=== PATIENT | male | born 1950 | race Caucasian/White ===

== ENCOUNTER 2018-02-27 08:45 | Inpatient (IN) | payer BC, OTHER ==
[2018-01-21 08:22] VITALS: BMI 41.0
--- NOTE | 2018-02-11 12:05 | HISTORY & PHYSICAL EXAMINATION ---
DATE OF ADMISSION: 02/27/2018 CHIEF COMPLAINT: Left knee pain. HISTORY OF PRESENT ILLNESS: A 67-year-old gentleman who I have been following for several years for bilateral knee pain and discomfort. We have treated him extensively over the years with injections which have become less successful over time. He had his right knee replaced just about 2-1/2 months ago and has done well from this. He is very pleased with this and would like to have his left knee replaced. He continues to be bothered by left knee pain. The more he walks, the more it hurts. The shots only helped him temporarily. Of note, the patient does have a history of cryptogenic stroke without any real residual sequelae. He has been stable and cleared by the type caster to proceed before his previous surgery. PAST MEDICAL HISTORY: Significant for: 1. Cryptogenic stroke without much sequelae. 2. Obesity with BMI of 42. 3. Gastroesophageal reflux disease. 4. Low back pain. 5. Hypertension. 6. Elevated cholesterol. 7. Sleep apnea. PREVIOUS SURGERIES: Include: 1. Back surgery x2, one in 2007 and one in 2009. 2. Right knee replacement done 11/27/2017. ALLERGIES: None. CURRENT MEDICINES: Include: 1. Atorvastatin. 2. Lisinopril. 3. Meloxicam. 4. Baby aspirin. 5. Vicodin. SOCIAL HISTORY: This is a 67-year-old male. He is . His medical doctor is Dr. Aldrich. He is from [place]. FAMILY HISTORY: Negative for diabetes, heart disease or blood clots or bleeding disorders. REVIEW OF SYSTEMS: Negative for diabetes. He does have significant obesity. He has a history of cryptogenic stroke without sequelae. No chest pain or shortness of breath. No history of DVT or PE. PHYSICAL EXAMINATION: GENERAL: Reveals a moderately obese middle-aged male. Looks to be in reasonably good health. HEENT: Benign. NECK: Supple, no lymphadenopathy. LUNGS: Clear to auscultation. HEART: Regular rate and rhythm. ABDOMEN: Soft, nontender, nondistended. EXTREMITIES: Grossly neurovascularly intact except as follows: Examination of the left knee reveals the patient walks with a little bit of a limp on the left side. He has got slight valgus alignment to his knee. Small to moderate sized knee effusion. Range of motion is 5-120. No instability. No pain with hip motion. Examination of the right knee reveals a well-healed incision. Knee alignment looks anatomic. Range of motion is 0-120. Good straight leg raise. X-RAYS: X-rays of the left knee reveals advanced left knee DJD. He has got complete loss of his lateral joint space. He has got chondrocalcinosis. He has got tricompartment disease. ASSESSMENT: A 67-year-old male with history of cryptogenic stroke without sequelae. Now 2-1/2 months out from right knee replacement, doing well, with advanced left knee degenerative joint disease. He is very happy with his right knee and would like to have his left knee replaced. PLAN: We will take him to the operating room and do a left total knee replacement. The risks and benefits of this procedure were explained to the patient including but not limited to DVT, PE, , infection, neurological injury, vascular injury, bleeding problem, pain, limited range of motion, stiffness, failure to relieve symptoms, incomplete relief of symptoms, need for further surgery in the future, fracture, leg length inequality, nerve palsy, etc. The patient understands and desires to proceed. Informed consent was obtained. We did talk to him about holding his meloxicam 2 weeks preop as well as lisinopril prior to the morning of surgery. We will use aspirin for DVT prophylaxis. He is planning to be discharged to home using [facility] home health program. DAMON
[~2018-02-27] VITALS: Ht 170.2 cm; Wt 121.4 kg
[2018-02-27] VITALS (10 sets, daily range): BP systolic 107–166; BP diastolic 70–88; PULSE 70–96; TEMP 36.5–37.1; O2SAT 92–98; Ht 170.2 cm; Wt 121.4 kg
[~2018-02-27 08:45] MED LIST: ACETAMINOPHEN 500 MG TAB PO SCH; ASPI81TA28 PO; ATOR10TA82 PO; BUPIVACAINE 0.5 % 5 MG/1 ML PF 10ML VIAL ONE; BUPIVACAINE LIPOSOME 266 MG, BUPIVACAINE/EPINEPHRINE INJ 50 ML, SODIUM CHLORIDE 0.9% PF... INFIL SCH; CEFAZOLIN 3000MG IV PUSH 22.5 ML IV SCH; FAMOTIDINE 20 MG TAB PO SCH; GABAPENTIN 600 MG PO SCH; LACTATED RINGER'S 1000ML 1,000 ML IV SCH; LACTATED RINGER'S 1000ML 500 ML IV SCH; LACTATED RINGER'S 1000ML IV SCH; LISI-787 PO; MELO7.5T5 PO; METOCLOPRAMIDE HCL 10 MG TAB PO SCH; ROPIVACAINE 0.5% 5 MG/ML 30 ML VIAL ONE; SCOPOLAMINE 1.5 MG TDSY TD SCH; TRANEXAMIC ACID INJ 1,000 MG x 1 Bag Intra-Op IV SCH; [UNRECOGNIZED DRUG - OTHER] PO
--- NOTE | 2018-02-27 09:39 | History & Physical Bridge Note ---
H&P Re-Evaluation Bridge Note: I have examined the patient, reviewed the History & Physical and in the interval since the performance of the History & Physical I have noted the following changes of clinical significance: No changes noted
[2018-02-27] MEDS ORDERED: MIDAZOLAM HCL 1 MG/ML 2ML VIAL ONE (10:42)
[2018-02-27] MEDS ORDERED: BACITRACIN 50000 UNIT VIAL ONE (11:45)
[2018-02-27] MEDS ORDERED: BUPIVACAINE LIPOSOME 1/3% 266 MG/20 ML VIAL ONE (11:45)
[2018-02-27] MEDS ORDERED: SODIUM CHLORIDE 0.9% PF 50 ML VIAL ONE (11:45)
[2018-02-27] MEDS ORDERED: EpINEphrine INJ 1MG/ML AMP 1 MG/ML AMP ONE (11:46)
[2018-02-27] MEDS ORDERED: BUPIVACAINE 0.25% 30 ML VIAL ONE (11:46)
[2018-02-27] MEDS ORDERED: PHENYLEPHRINE 100MCG/ML 5ML SYR ONE (11:54)
[2018-02-27] MEDS ORDERED: EpHEDrine SULFATE 50MG/5ML SYR ONE (11:54)
[2018-02-27] MEDS ORDERED: ONDANSETRON INJ 2 MG/ML 2 ML VIAL ONE (12:49)
[2018-02-27] MEDS ORDERED: PROPOFOL IV EMULSION 10 MG/ML 20 ML VIAL ONE (12:49)
[2018-02-27] MEDS ORDERED: LIDOCAINE HCL 2% 2 ML VIAL (20MG/ML) ONE (12:49)
[2018-02-27] MEDS ORDERED: FENTANYL CITRATE INJ 50 MCG/1 ML 2 ML VIAL ONE (13:17)
--- NOTE | 2018-02-27 13:49 | [facility] Post Operative Brief Note ---
Immediate Operative Summary Operative Date Feb 27, 2018. Pre-Operative Diagnosis Degenerative joint disease left knee Post-Operative Diagnosis Degenerative Joint Disease Left knee Procedure(s) Performed Left Total Knee Arthroplasty Surgeon Waste Oil Pumper Surgeon(s) ASHLEY Soria Estimated Blood Loss 50 ml Findings Consistent with Post-Op Diagnosis Fluids (cc crystalloids) 1800 cc Specimens A. Left knee bone and tissue Drains None Anesthesia Type MAC Spinal Regional Complication(s) none Disposition Accompanied Pt To Recover: no Disposition: Recovery Room / PACU Overlapping Procedure I was present for: the critical portions of procedure. I was immediately available: during the entire case
[2018-02-27] MEDS ORDERED: MoRPHine SULFATE 2 MG/ML CARP IV PRN (14:00)
[2018-02-27] MEDS ORDERED: ALUMINUM/MAGNESIUM/SIMETH (MAALOX MAX) 30 ML UDC PO PRN (14:00)
[2018-02-27] MEDS ORDERED: BISACODYL 10 MG SUPP PR PRN (14:00)
[2018-02-27] MEDS ORDERED: DiphenhydrAMINE HCL 50 MG/ML VIAL IV PRN (14:00)
[2018-02-27] MEDS ORDERED: METOCLOPRAMIDE HCL INJ 5 MG/ML 2 ML VIAL IV PRN (14:00)
[2018-02-27] MEDS ORDERED: TAMSULOSIN HCL 0.4 MG CAP PO PRN (14:00)
[2018-02-27] MEDS ORDERED: SILVER SULFADIAZINE 1% CR 50 GM JAR EXT PRN (14:00)
[2018-02-27] MEDS ORDERED: MAGNESIUM HYDROXIDE SUSP 30 ML UDC PO PRN (14:00)
[2018-02-27] MEDS ORDERED: ZOLPIDEM TARTRATE 5 MG TAB PO PRN (14:00)
[2018-02-27] MEDS ORDERED: ONDANSETRON INJ 2 MG/ML 2 ML VIAL IV PRN ×2 (14:00→14:15)
[2018-02-27] MEDS ORDERED: EpHEDrine SULFATE INJ 50 MG/ML AMP ONE (14:12)
[2018-02-27] MEDS ORDERED: HYDROmorphone INJ 2 MG/ML SYR/VIAL IV PRN (14:15)
[2018-02-27] MEDS ORDERED: ATROPINE SULFATE 0.1 MG/ML 5ML SYR IV PRN (14:15)
[2018-02-27] MEDS ORDERED: PHENYLEPHRINE 100MCG/ML 5ML SYR IV PRN (14:15)
[2018-02-27] MEDS ORDERED: EpHEDrine SULFATE INJ 50 MG/ML AMP IV PRN (14:15)
--- NOTE | 2018-02-27 14:18 | Anesthesiology Progress Note ---
Anesthesia Post Op Note Date & Time Feb 27, 2018 at 14:18 Vital Signs Pain Intensity: 0 Vital Signs Past 12 Hours Date Time Temp Pulse Resp B/P (MAP) Pulse Ox O2 Delivery O2 Flow Rate FiO2 02/27/18 14:10 74 16 100/64 95 Nasal Cannula 2 02/27/18 14:00 76 16 110/60 95 Oxymask 10 02/27/18 13:54 36.6 75 16 104/52 96 Oxymask 10 02/27/18 09:11 36.5 96 20 166/88 97 Room Air Notes Mental Status: alert / awake / arousable, participated in evaluation Pt Amnestic to Procedure: Yes Nausea / Vomiting: adequately controlled Pain: adequately controlled Airway Patency, RR, SpO2: stable & adequate BP & HR: stable & adequate Hydration State: stable & adequate Anesthetic Complications: no major complications apparent
--- NOTE | 2018-02-27 14:41 | DIAGNOSTIC IMAGING REPORT ---
L KNEE 1 OR 2 VIEWS ROUTINE HISTORY: 67 years-old Male AP/LATERAL IN PACU LEFT KNEE left knee total joint arthroplasty. Degenerative joint disease. COMPARISON: Knee radiographs 07/11/2017 TECHNIQUE: 2 views of the left knee FINDINGS: Left knee total joint arthroplasty with patellar resurfacing. Anterior midline skin radha are noted with expected postsurgical soft tissue swelling and deep tissue air. Surgical drain is in place. Alignment is satisfactory without acute fracture or malalignment. Periarticular ossifications are noted adjacent to the medial femoral condyle. IMPRESSION: Left knee total joint arthroplasty and patellar resurfacing without complication identified. The above report was generated using voice recognition software. It may contain grammatical, syntax or spelling errors. Electronically signed by: Jose C Holbrook M.D. 02/27/2018 2:39 PM Dictated Date/Time: 02/27/2018 2:38 PM
--- NOTE | 2018-02-27 15:15 | OPERATIVE REPORT ---
DATE OF OPERATION: 02/27/2018 SURGEON: Sandro James MD NYLON MENDER: ASHLEY Sherman PREOPERATIVE DIAGNOSIS: Left knee degenerative joint disease. POSTOPERATIVE DIAGNOSIS: Left knee degenerative joint disease. PROCEDURE PERFORMED: Left cemented posterior stabilized total knee arthroplasty. COMPLICATIONS: None. ESTIMATED BLOOD LOSS: 50 mL. FLUID REPLACEMENT: 1800 mL crystalloid fluid replacement. TOURNIQUET TIME: 66 minutes at 300 mmHg. ANESTHESIA: Spinal with adductor canal block. DRAINS: None. SPECIMENS: Left knee sent for pathology. OPERATIVE INDICATIONS: The patient is a 67-year-old gentleman who has had a long history of bilateral knee pain and discomfort, not been following him over the years with injections. This became less successful over time. He has right knee replaced about 3 months ago and has done well from this and elected to do a left total knee arthroplasty. OPERATIVE FINDINGS: Operative findings revealed extensive left knee DJD with grade 4 changes in all 3 compartments, most severe in the lateral side. He had evidence of multiple steroid shots. He has extensive synovitis. He had osteophytes in all 3 compartments with large joint effusion. OPERATIVE IMPLANTS: Operative implants consisted of: 1. Biomet Vanguard size 67.5 left posterior stabilized bifemoral component. 2. Biomet size 75 tibial tray. 3. A 10 mm posterior stabilized polyethylene insert. 4. A 34 x 8.5 all poly patella. OPERATIVE PROCEDURE: The patient was taken to the operating room, identified and placed on the operative table in supine position. All contact areas were appropriately padded. IV antibiotics provided by anesthesia team. A spinal anesthetic and adductor canal block had been provided in the holding area. Butts catheter was placed in sterile fashion. Left thigh tourniquet was then placed and left lower extremity was then prepped and draped in usual sterile fashion. The left leg was elevated and exsanguinated with Esmarch and tourniquet placed at 300 mmHg. An anterior approach of the left knee was then performed through a longitudinal incision centered over the patella. Sharp dissection was carried through subcutaneous tissues down to the level of the extensor mechanism. A medial parapatellar arthrotomy incision was made. Some subperiosteal dissection was carried out medially. The fat pad resected from beneath the patellar tendon. The lateral patellofemoral ligament was released. Patella was everted and knee was flexed. The osteophytes were taken off the distal femur. The ACL and PCL were then released from the distal femur. The tibia subluxated anteriorly. The external tibial alignment jig was then placed in the anterior face of the tibia and adjusted 14 mm medially. Proximal tibial cut was made to remove about 2 mm of bone from the medial side. The tibia was then sized to a size 75. Some osteophytes were taken off medial and posteromedially. Attention was then drawn to the femur. The distal femur entered with a sharp drill bit. Intramedullary canal was suctioned. A left 6-degree valgus cutting guide was placed. Distal femoral cutting block was pinned in place. Distal femoral cut was made to take an additional 3 mm of bone on distal femur. The femur was then sized to a 67.5. We did downsize this slightly. The AP cutting block was pinned parallel to the epicondylar axis, which was 7 degrees of external rotation. The anterior cut, anterior chamfer, posterior cut, posterior chamfer cuts were made. Box cutting guide was placed and adjusted slightly lateral and the box cut was made. The trial femoral component was placed. Tibial tray was pinned in maximum external rotation and drill and stem punch were used to create defect in proximal tibia for the tibial tray. The knee was then trialed and a 10 mm insert fit most appropriately. Attention was then drawn to the patella. The patella was cleaned of soft tissues. Patella thickness measured 23 mm in thickness and we cut this down to 14. It was sized to a size 34 patella. Locals were drilled for a 34 patella. Lateral osteophyte was removed. Patella button was placed. Knee was taken through range of motion and patella tracked nicely with no thumbs test. Attention was then drawn toward placing the permanent components. All trial components were removed. Bone plug was placed in the distal femur to limit blood loss. A double batch of Palacos G cement was mixed. A left size 67.5 posterior stabilized femoral component, size 75 tibial tray, a 10 mm posterior stabilized polyethylene insert, and a 34 x 8.5 all poly patella then cemented in place. Knee was brought out into full extension until cement hardened. A final cement check was then performed. Pericapsular tissues were injected with a total of 100 mL of combination of 20 mL of Exparel, 30 mL of normal saline, 50 mL of 0.25% Marcaine with epinephrine. The patient did receive 1 gram of tranexamic acid. The tourniquet was then let down for final tourniquet time 66 minutes. Hemostasis was assured using electrocautery. The extensor mechanism was then closed combination of #1 PDS suture and #1 Vicryl suture in a [id number] fashion. Extensor mechanism was checked and found to be intact. The subcutaneous tissues were then closed with 2-0 Dexon suture in a buried interrupted fashion. Skin was closed skin radha. Leg was then cleaned, dried and a sterile dressing of Xeroform, 4 x 4's, sterile cast padding and Reddy bandage were applied. The patient then transferred to the recovery room in stable condition. The patient tolerated the procedure well with no complication. All needle and sponge counts were correct at the end of the operation. I attest to the content of the Intraoperative Record and any orders documented therein. Any exception s are noted below.
[2018-02-27] MEDS: OXYCODONE HCL IR 5 MG TAB (IMMEDIATE RELEASE) PO PRN ×2 (15:29→19:44)
[2018-02-27] MEDS: CHECK SCOPOLAMINE PATCH PLACEMENT SCH ×2 (15:35→20:06)
[2018-02-27] MEDS: ACETAMINOPHEN 500 MG TAB PO SCH ×2 (15:36→21:33)
[2018-02-27] MEDS: KETOROLAC TROMETHAMINE 15 MG/ML VIAL IV. SCH ×2 (15:36→21:33)
[2018-02-27] MEDS: FERROUS GLUCONATE 324 MG TAB PO SCH (17:41)
[2018-02-27] MEDS: CEFAZOLIN IV 2,000 MG in SYRINGE 0 ML IV SCH (19:56)
[2018-02-27] MEDS: D5W AND 1/2NSS + 20MEQ KCL 1,000 ML IV SCH ×2 (19:56→21:33)
[2018-02-27] MEDS: TAPENTADOL ER 50 MG TABCR PO SCH (21:31)
[2018-02-27] MEDS: ASPIRIN 81 MG ECTAB PO SCH (21:31)
[2018-02-27] MEDS: SENNA 8.6 MG TAB PO SCH (21:32)
[2018-02-27] MEDS: ATORVASTATIN 10 MG TAB PO SCH (21:32)
[2018-02-27] MEDS: DOCUSATE SODIUM 100 MG CAP PO SCH (21:32)
[2018-02-28 03:41] VITALS: BP 145/81; PULSE 80; TEMP 37; O2SAT 95
[2018-02-28] MEDS: OXYCODONE HCL IR 5 MG TAB (IMMEDIATE RELEASE) PO PRN ×3 (03:49→19:11)
[2018-02-28] MEDS: CEFAZOLIN IV 2,000 MG in SYRINGE 0 ML IV SCH (03:49)
[2018-02-28] MEDS: KETOROLAC TROMETHAMINE 15 MG/ML VIAL IV. SCH ×4 (03:49→22:10)
[2018-02-28] MEDS: D5W AND 1/2NSS + 20MEQ KCL 1,000 ML IV SCH ×2 (03:50→10:41)
[2018-02-28] MEDS: ACETAMINOPHEN 500 MG TAB PO SCH ×3 (05:51→22:05)
[2018-02-28 05:52] LABS: HEMATOCRIT 35.5 % (42-52); HEMOGLOBIN 11.8 g/dL (14.0-18.0); MEAN CELL VOLUME 90.1 fL (80-100); MEAN CORPUSCULAR HEMOGLOBIN 29.9 pg (25-34); MEAN CORPUSCULAR HGB CONC 33.2 g/dl (32-36); MEAN PLATELET VOLUME 9.9 fL (7.4-10.4); PLATELET COUNT 191 K/uL (130-400); RED CELL DISTRIBUTION WIDTH CV 12.6 % (11.5-14.5); RED CELL DISTRIBUTION WIDTH SD 41.9 fL (36.4-46.3); WHITE BLOOD COUNT 9.29 K/uL (4.8-10.8)
[2018-02-28 06:21] LABS: CALCIUM 7.6 mg/dl (8.5-10.1); CREATININE 1.22 mg/dl (0.60-1.40)
[2018-02-28 06:37] VITALS: BP 111/71; PULSE 74; TEMP 36.9; O2SAT 97
--- NOTE | 2018-02-28 07:20 | Anesthesiology Progress Note ---
Anesthesia Post Op Note Date & Time Feb 28, 2018 at 07:19 Vital Signs Pain Intensity: 4.0 Vital Signs Past 12 Hours Date Time Temp Pulse Resp B/P (MAP) Pulse Ox O2 Delivery O2 Flow Rate FiO2 02/28/18 06:37 36.9 74 16 111/71 (84) 97 Room Air 02/28/18 03:41 37.0 80 17 145/81 (102) 95 Room Air 02/27/18 23:53 36.7 80 16 125/73 (90) 98 Room Air 02/27/18 20:00 Room Air 02/27/18 19:24 37.1 79 18 136/76 (96) 92 Room Air Notes Mental Status: alert / awake / arousable, participated in evaluation Pt Amnestic to Procedure: Yes Nausea / Vomiting: adequately controlled Pain: adequately controlled Airway Patency, RR, SpO2: stable & adequate BP & HR: stable & adequate Hydration State: stable & adequate Neuraxial Anesthesia: sensory block resolved Anesthetic Complications: no major complications apparent Pt stated that he woke up hearing saws and hammers and he didnt like that. Otherwise uneventful anesthetic
--- NOTE | 2018-02-28 08:09 | PROGRESS NOTE ---
DATE: 02/28/2018 SUBJECTIVE: A 67-year-old gentleman postop day 1 from a left knee replacement. He is doing pretty well. Mostly just some thigh discomfort. No chest pain or shortness of breath. Not feeling dizzy or lightheaded. OBJECTIVE: VITAL SIGNS: Temperature 36.9. Vital signs stable. GENERAL: Physical examination reveals a healthy, pleasant, middle-aged male. He is sitting up in bed, looks reasonably comfortable. EXTREMITIES: Examination of the left leg reveals the leg to be well aligned. Dressing is clean, dry, and intact. He can dorsiflex and plantarflex his foot appropriately. LABORATORY DATA: Hemoglobin 11.8, hematocrit 35.5. Electrolytes are stable. ASSESSMENT: A 67-year-old gentleman postop day 1 from left knee replacement, doing pretty well. Pain is controlled. He is neurologically intact. PLAN: 1. DVT prophylaxis including thigh-high TEDs, SCDs, and aspirin twice a day. 2. PT/OT. Weight bear as tolerated. Left total knee protocol. 3. Pain control, doing pretty well with current pain regimen. 4. Disposition: Plan to discharge to home with some home health once adequately recovered.
[2018-02-28] MEDS: CHECK SCOPOLAMINE PATCH PLACEMENT SCH (08:13)
[2018-02-28] MEDS ORDERED: NURSING DECISION MEDICATION ORDER SCH (08:30)
[2018-02-28] MEDS: FERROUS GLUCONATE 324 MG TAB PO SCH ×3 (08:30→18:43)
[2018-02-28] MEDS: TAPENTADOL ER 50 MG TABCR PO SCH ×2 (08:39→22:05)
[2018-02-28] MEDS: LISINOPRIL/HCTZ 20/12.5MG TAB PO SCH (08:40)
[2018-02-28] MEDS: ASPIRIN 81 MG ECTAB PO SCH ×2 (08:40→22:06)
[2018-02-28] MEDS: PANTOprazole SOD 40 MG TAB PO SCH (08:41)
[2018-02-28] MEDS: DOCUSATE SODIUM 100 MG CAP PO SCH ×2 (08:42→22:06)
[2018-02-28] MEDS: MULTIVITAMIN TAB PO SCH (08:42)
[2018-02-28] MEDS ORDERED: COUGH DROP (SUGAR FREE) LOZ 24 LOZ/1 BOX LOZ PRN (08:45)
[2018-02-28 10:38] VITALS: BP 130/80; PULSE 83; O2SAT 98
[2018-02-28 11:24] VITALS: BP 124/76; PULSE 85; TEMP 36.9; O2SAT 95
[2018-02-28] MEDS ORDERED: NURSING VERBAL MED ORDER ONE (14:15)
[2018-02-28 15:56] VITALS: BP 120/75; PULSE 78; TEMP 36.9; O2SAT 93
[2018-02-28] MEDS: SENNA 8.6 MG TAB PO SCH (22:32)
[2018-02-28] MEDS: ATORVASTATIN 10 MG TAB PO SCH (22:32)
[2018-02-28 23:11] VITALS: BP 115/72; PULSE 95; TEMP 37.1; O2SAT 96
[2018-03-01] MEDS: KETOROLAC TROMETHAMINE 15 MG/ML VIAL IV. SCH ×2 (03:37→09:51)
[2018-03-01] MEDS: ACETAMINOPHEN 500 MG TAB PO SCH (05:54)
[2018-03-01 05:59] VITALS: BP 121/77; PULSE 77; TEMP 37; O2SAT 96
[2018-03-01] MEDS ORDERED: RXC5 PO (08:17)
[2018-03-01] MEDS ORDERED: ACET-24 PO (08:17)
[2018-03-01] MEDS ORDERED: ASPI-461 PO (08:17)
--- NOTE | 2018-03-01 08:18 | Discharge Instructions ---
Discharge Instructions Date of Service Mar 01, 2018. Admission Reason for Admission: Left Knee Degenerative Joint Disease Discharge Discharge Diagnosis / Problem: Left Knee Replacement Discharge Goals Goal(s): Decrease discomfort, Improve function, Increase independence, Improve disease control, Therapeutic intervention Activity Recommendations Activity Limitations: per Instructions/Follow-up section Weightbearing Status: Left weightbearing . Instructions / Follow-Up Instructions / Follow-Up ACTIVITY RECOMMENDATIONS: Physical Therapy: * You will go to physical therapy three times each week for four to six weeks after your surgery in order to regain your knee range of motion and to retrain your knee to work properly. * It is just as important to make sure you are getting your knee perfectly straight as it is to regain your knee bend. * Taking a pain pill an hour before therapy can help you have a more productive and comfortable therapy session. Home Exercise: * You were shown a series of exercises (heel props, heel slides, etc.) in the hospital. Do these exercises three to four times each day including the exercises you were shown in physical therapy. Walking: * Get up and walk several times each day. For the first four weeks, try not to stand or walk for more than one hour at a time. If you do stand or walk for more than one hour, you will not hurt anything, but your knee and leg will likely swell. * As you feel comfortable, you may change from the walker or crutches to a cane and then to independent walking. MEDICATIONS: New Medicine: * You will likely be taking one or more of these medications: 1. Oxycodone - A quick and shorter-acting pain medication. Take one to two tablets every four to six hours to lessen your pain. 2. Aspirin - Thins your blood to lessen the chance of forming a blood clot. * The most common side effects of pain medicine and iron are nausea and constipation. If nausea or constipation is too much of a problem or if you have any questions about your new medicines or doses, call [facility] at [phone]. We will try to help you manage these issues. VERY IMPORTANT TO READ AND REVIEW" Pain: * The immediate post-operative period after knee replacement surgery is often quite painful. * You are given a prescription for pain medicine. You should take it, as directed, when you need it, especially before physical therapy and before going to bed. Pain that interferes with sleep is very common and can last several months. * You will likely need pain medicine for the first four to six weeks. It will not stop all of the pain. The pain will lessen and as you feel better, you may change to milder pain medicine such as Tylenol. * The most common side effects of pain medicine are nausea and constipation, so don't take more than you need. SPECIAL CARE INSTRUCTIONS: TEDs/Elastic Stockings: * The white elastic stockings help limit swelling and prevent blood clots from forming in your legs. The more you wear them, the more they work. * Wear them for six weeks after knee replacement surgery and four weeks after partial knee replacement. Prevention of Infection: * Take antibiotics one hour before any dental cleaning, dental work, urological procedure, gastrointestinal procedure or any invasive surgery in order to prevent your new joint from getting infected. * You may get the antibiotics from the doctor performing the procedure or you may call our office at before and we will call in a prescription to the pharmacy of your choice. Things to Watch For: * Drainage from the incision site that occurs more than one week after your surgery. * Severely increased knee/leg pain or swelling. * Increased redness at the incision site. * Fever above 102 degrees Fahrenheit. * Unusual chest pain or shortness of breath. * Unusual pain or burning with urination. Call [facility] at with any of the above problems or if you have any questions about your medicines or recovery. FOLLOW UP VISIT: Make an appointment to see your doctor for approximately two weeks after surgery for a progress check and staple removal by calling the office at . Current Hospital Diet Patient's current hospital diet: Regular Diet Discharge Diet Recommended Diet: Regular Diet Procedures Procedures Performed: Left Total Knee Arthroplasty Pending Studies Studies pending at discharge: no Medical Emergencies . Who to Call and When: Medical Emergencies: If at any time you feel your situation is an emergency, please call [phone] immediately. . Non-Emergent Contact Non-Emergency issues call your: Surgeon . "Provider Documentation" section prepared by Sandro James. .
[2018-03-01] MEDS: TAPENTADOL ER 50 MG TABCR PO SCH (08:43)
[2018-03-01] MEDS: LISINOPRIL/HCTZ 20/12.5MG TAB PO SCH (08:44)
[2018-03-01] MEDS: MULTIVITAMIN TAB PO SCH (08:44)
[2018-03-01] MEDS: OXYCODONE HCL IR 5 MG TAB (IMMEDIATE RELEASE) PO PRN (08:44)
[2018-03-01] MEDS: PANTOprazole SOD 40 MG TAB PO SCH (08:44)
[2018-03-01] MEDS: FERROUS GLUCONATE 324 MG TAB PO SCH (08:44)
--- NOTE | 2018-03-01 08:53 | PROGRESS NOTE ---
DATE: 03/01/2018 SUBJECTIVE: A 67-year-old gentleman postop day 2 from a left knee replacement. He is doing pretty well. Pain is controlled. No chest pain or shortness of breath. Not feeling dizzy or lightheaded. OBJECTIVE: VITAL SIGNS: Temperature 37.0. Vital signs stable. GENERAL: Physical examination reveals a pleasant, middle-aged male. He is sitting up in bed, looks pretty comfortable. I actually had to wake him this morning. EXTREMITIES: Examination of the left leg reveals the leg to be well aligned. Dressing is clean, dry, and intact. He can dorsiflex and plantarflex his foot appropriately. He is neurologically intact. ASSESSMENT: A 67-year-old gentleman postop day 2 from a left knee replacement, doing pretty well. Pain is controlled. He is neurologically intact. PLAN: 1. DVT prophylaxis including thigh-high TEDs, SCDs, and aspirin twice a day. 2. PT, OT. Weight bear as tolerated. Left total knee protocol. 3. Pain control, doing well with current pain regimen. 4. Disposition: Plan to discharge to home with some home health likely later today.
[2018-03-01 09:40] VITALS: BP 121/77; PULSE 77; TEMP 37; O2SAT 96
[2018-03-01] MEDS: DOCUSATE SODIUM 100 MG CAP PO SCH (09:48)
[2018-03-01] MEDS: ASPIRIN 81 MG ECTAB PO SCH (09:48)
--- NOTE | 2018-03-11 15:59 | DISCHARGE SUMMARY ---
ADMITTING DIAGNOSIS: Left knee degenerative joint disease. SURGERY PERFORMED: Left total knee arthroplasty. SECONDARY DIAGNOSES: Cryptogenic stroke, obesity, gastroesophageal reflux disease, low back pain, hypertension, elevated cholesterol, sleep apnea. CONSULTS: None obtained. HISTORY AND PHYSICAL EXAMINATION: Well documented in the patient's chart. HOSPITAL COURSE: Patient was admitted on 02/27/2018 and underwent total knee arthroplasty, tolerated the procedure well. There were no complications. He was transferred to the PACU postoperatively and later to the orthopedic floor for further care. He was given Ancef for antibiotic prophylaxis, ISAI stockings, SCDs and aspirin for DVT prophylaxis. Hemoglobin, hematocrit, and vital signs were monitored during his hospital stay and remained stable. He developed some postoperative anemia, did not require any blood transfusions. There were no complications. On postoperative day 2, he was tolerating a regular diet. Pain was controlled with oral pain medicine. He was participating in physical therapy. On postop day 2, he was discharged home, set up with home health services. He was given printed discharge instructions including new prescriptions for extra strength Tylenol, aspirin, oxycodone. Continue his home medications with the exception of his home doses of aspirin and was also instructed to stop hydrocodone. Continue physical therapy. Weightbearing as tolerated. ISAI stockings. Follow up in approximately 2 weeks postoperatively or sooner if there are any problems or concerns.
== END 2018-03-01 10:34 | disposition home health service (06) | DRG 470 ==
LOC: C.ACU 08:45 → C.3E 08:52 → ENRESERV 14:23
PROVIDERS: ADMIT Orthopaedic Surgery Sports Medicine; ATTEND Orthopaedic Surgery Sports Medicine
PROC: 0SRD0J9 Replacement of Left Knee Joint with Synthetic Substitute, Cemented, Open Approach (ICD-10-PCS; principal; 2018-02-27 11:15)
DX: M17.12 Unilateral primary osteoarthritis, left knee (principal); Z68.41 Body mass index [BMI] 40.0-44.9, adult; Z86.73 Personal history of transient ischemic attack (TIA), and cerebral infarction without residual deficits; E66.9 Obesity, unspecified; K21.9 Gastro-esophageal reflux disease without esophagitis; I10 Essential (primary) hypertension; E78.00 Pure hypercholesterolemia, unspecified; G47.30 Sleep apnea, unspecified; Z96.651 Presence of right artificial knee joint; M11.162 Familial chondrocalcinosis, left knee

== ENCOUNTER 2022-02-13 12:48 | Observation (INO) ==
--- NOTE | 2022-02-13 13:28 | XRay Report ---
XR chest 1V portable CLINICAL HISTORY: afib TECHNIQUE: Single frontal radiograph of the chest was obtained. Comparison: None available at the time of this dictation. FINDINGS: Exam is limited by underpenetration. The cardiomediastinal silhouette is normal. Lungs are underinfla linda but clear. No evidence of pleural effusion or pneumothorax. IMPRESSION: No acute chest disease. ACT 112: Negative or not required by law. Electronically signed by: Mitch Hoang M.D. 02/13/2022 1:27 PM
--- NOTE | 2022-02-13 13:31 | Emergency Department Note ---
Impression & Plan Atrial fibrillation, new onset, Hypomagnesemia ED Provider Note NAME: SAAD MCLAUGHLIN AGE: 71 SEX: M : 1950 ARRIVES VIA: Walk-In INFORMANT: Patient, ED PROVIDER(S): Elvis Grijalva MD Chief Complaint: HPI: Patient presents as a referral from outpatient surgery for preoperative clearance for a right shoulder replacement to be completed by Dr. Black in March. The patient was reportedly found to be in A. fib. 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 Patient does have a prior history of stroke and does take aspirin. Patient [place] any chest pain shortness of breath nausea or vomiting. No weakness numbness or tingling. The patient denies any palpitations or dizziness. Patient drinks maybe several beers per week but not regular drinker. Patient denies any tobacco or drug use. Patient will have occasional caffeine but certainly no more than 1/day. ROS: See HPI for pertinent positives and negatives. A total of 10 systems were reviewed and otherwise negative. Past medical history: See below Surgical history: See below Social history: See below Physical Exam: GENERAL: NAD, wearing a mask, non-toxic. EYE EXAM: Normal conjunctiva. PERRL, no anisocoria and EOM's grossly intact w/o pain. NECK: Supple, no nuchal rigidity, no adenopathy, non-tender. No signs of meningismus. LUNGS: Clear to auscultation. Normal chest wall mechanics. HEART: Irregularly irregular, no MRG. ABDOMEN: Abdomen soft, non-tender, normo-active bowel sounds, no masses, no rebound or guarding. BACK: No CVA TTP. SKIN: No rashes and no bruising. UPPER EXTREMITIES: Upper extremities are grossly normal. LOWER EXTREMITIES: Grossly normal, no edema. Well-healed bilateral incisional knee scars. NEURO EXAM: A&O x3, cranial nerves II-XII grossly intact, normal speech, moves all 4 extremities on command w/o issue. Differential diagnoses: Infection, dehydration, metabolic abnormality, hypo/hyperglycemia, electrolyte disturbance, anemia, hypoxia, cardiac sources, intracerebral event, toxicologic, neurologic, as well as other pathologies. Course: Patient was seen and evaluated the bedside. Full history physical exam was performed. EKG interpreted by me Jade coreas, rate of 83, normal QRS, normal axis, T wave version in lead III no obvious ST elevations. Imaging Studies: See Below Cardiac monitoring: An order was placed for continuous cardiac monitoring. The monitor shows a rate of 82 with irregularly irregular rhythm. MDM: Patient was seen due to concern for new onset A. fib. Blood work was obtained. EKG confirms A. fib. The patient has a normal white count H&H and platelet count. Kidney function is unremarkable. Hypomagnesemia noted the patient was ordered for magnesium replacement. COVID-negative. Heparin was ordered. I did speak with the on-call hospitalist Dr. Anand and the patient was admitted to the medicine service. No chest pain or shortness of breath at this time. Critical Care: I have personally spent 45 minutes of critical care time in direct management of this patient. This includes bedside care, interpretation of diagnostic studies, and testing, discussion with consultants, patient, and family members, and other require inpatient management activities. This 45 minutes is in excess of all separately billable procedures. 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 L 02/27/18: SAB at L3-L4, L2-L3 2 attempts + PNB. Awareness with L TKA "heard saws and hammers." History of cholecystectomy History of colonoscopy History of ear surgery History of spinal fusion for scoliosis x2--2007 and 2009 Family History Sister Family history of reaction to anesthesia BP drops Social History Smoking Status: Former smoker Tobacco Type: Cigarettes Second Hand Exposure: No; Hx Alcohol Use: Yes Hx Substance Use: No Preferred Language: Lithuanian Communication Ability: Effective Systems Librarian Required: No Beliefs That Will Affect Care: None Current Living Situation: Spouse Feels Safe at Home: Yes Assistive Devices: Glasses Allergies Allergies Allergy/AdvReac Type Severity Reaction Status Date / Time No Known Allergies Allergy Unknown Verified 02/09/22 11:36 Home Meds Home Medications Medication Instructions Recorded Confirmed acetaminophen 500 mg tablet 1,000 mg PO Q6H PRN 02/09/22 02/09/22 aspirin 81 mg chewable tablet 81 mg PO QAM 02/09/22 02/09/22 atorvastatin 10 mg tablet 10 mg PO HS 02/09/22 02/09/22 hydrocodone 7.5 mg-acetaminophen 1 tab PO Q6H PRN 02/09/22 02/09/22 325 mg tablet lisinopril 20 2 tab PO QAM 02/09/22 02/09/22 mg-hydrochlorothiazide 12.5 mg tablet meloxicam 7.5 mg tablet 7.5 mg PO QAM 02/09/22 02/09/22 cholecalciferol (vitamin D3) 02/13/22 metformin 02/13/22 Results & Data (ED) Vital Signs Vital Signs - 24 hr 02/13/22 12:53 02/13/22 13:50 02/13/22 13:51 Temperature 36.7 C Temperature Source Temporal Artery Scan Pulse Rate 91 H 78 Pulse Rate [Apical] 87 Respiratory Rate 20 20 22 Respiratory Effort / Characteristics Non-Labored Non-Labored Spontaneous Respiratory Depth Normal Normal Respiratory Pattern Regular Regular Blood Pressure 140/98 Blood Pressure [Right Arm] 147/105 H Blood Pressure Mean 112 Blood Pressure Mean [Right Arm] 119 Blood Pressure Position Sitting Pulse Oximetry 96 98 97 Oxygen Delivery Method Room Air Room Air Room Air Sepsis Recent Fever Within 48 Hours No Sepsis New/Unexplained Change in Mental Status N/A Sepsis Action Taken by Nursing No Action Required 02/13/22 14:30 02/13/22 15:00 Temperature Temperature Source Pulse Rate 84 Pulse Rate [Apical] 86 Respiratory Rate 20 16 Respiratory Effort / Characteristics Non-Labored Respiratory Depth Normal Respiratory Pattern Blood Pressure 156/95 H Blood Pressure [Right Arm] 138/84 Blood Pressure Mean 115 Blood Pressure Mean [Right Arm] 102 Blood Pressure Position Pulse Oximetry 98 97 Oxygen Delivery Method Room Air Room Air Sepsis Recent Fever Within 48 Hours Sepsis New/Unexplained Change in Mental Status Sepsis Action Taken by [facility] Medications Current Medication List: was personally reviewed by me Laboratory Data Attestation: I reviewed the patient's lab results. Result diagrams: 02/13/22 14:14 02/13/22 14:14 Lab Results 02/13/22 02/13/22 02/13/22 Range/Units 13:50 14:14 14:14 WBC (4.8-10.8) K/ul RBC (4.63-6.08) M/uL Hgb (14.0-18.0) g/dl Hct (40.1-51.0) % MCV (80.0-100.0) fL MCH (25.0-34.0) pg MCHC (32.0-36.0) g/dL RDW Std Deviation (36.4-46.3) fL RDW Coeff of Alan (11.5-14.5) % Plt Count (130-400) K/uL MPV (9.4-12.4) fL Immature Gran % (Auto) % Neut % (Auto) % Lymph % (Auto) % Boyle % (Auto) % Eos % (Auto) % Baso % (Auto) % Neut # (Auto) (1.4-6.5) K/uL Lymph # (Auto) (1.2-3.4) K/uL Boyle # (Auto) (0.24-0.82) K/uL Eos # (Auto) (0-0.50) K/uL Baso # (Auto) (0-0.2) K/uL Immature Gran # (Auto) (0.00-0.02) K/uL PT (9.0-12.0) Seconds INR (0.9-1.1) Sodium 137 (136-145) mmol/L Potassium 4.1 (3.5-5.1) mmol/L Chloride 104 (98-107) mmol/L Carbon Dioxide 27 (21-32) mmol/L Anion Gap 6 (3-11) BUN 18 (6-23) mg/dl Creatinine 1.10 (0.6-1.4) mg/dl Est Cr Clr Drug Dosing Not Reportable Est GFR ( Amer) 79.0 ml/min Est GFR (Non-Af Amer) 68.1 ml/min BUN/Creatinine Ratio 16.4 (10-20) Glucose 101 H (70-99(Fasting)) mg/dl Calcium 9.3 (8.5-10.1) mg/dl Magnesium 1.6 L (1.7-2.4) mg/dl Total Bilirubin 1.1 H (0.2-1.0) mg/dl AST 15 (13-39) U/L ALT 18 (7-52) U/L Alkaline Phosphatase 48 (34-104) U/L Troponin I High Sens 6.0 (0-20) pg/ml Total Protein 6.7 (6.0-8.3) gm/dl Albumin 4.2 (3.4-5.0) gm/dl Globulin 2.5 (2.5-4.0) gm/dl Albumin/Globulin Ratio 1.7 (0.9-2) TSH 1.140 (0.300-4.500) uIu/ml SARS-CoV-2, RNA, NAAT NEGATIVE (NEGATIVE) 02/13/22 02/13/22 Range/Units 14:14 14:14 WBC 9.11 (4.8-10.8) K/ul RBC 4.69 (4.63-6.08) M/uL Hgb 14.7 (14.0-18.0) g/dl Hct 42.8 (40.1-51.0) % MCV 91.3 (80.0-100.0) fL MCH 31.3 (25.0-34.0) pg MCHC 34.3 (32.0-36.0) g/dL RDW Std Deviation 41.9 (36.4-46.3) fL RDW Coeff of Alan 12.8 (11.5-14.5) % Plt Count 202 (130-400) K/uL MPV 10.2 (9.4-12.4) fL Immature Gran % (Auto) 1.2 % Neut % (Auto) 67.9 % Lymph % (Auto) 22.3 % Boyle % (Auto) 6.6 % Eos % (Auto) 1.3 % Baso % (Auto) 0.7 % Neut # (Auto) 6.19 (1.4-6.5) K/uL Lymph # (Auto) 2.03 (1.2-3.4) K/uL Boyle # (Auto) 0.60 (0.24-0.82) K/uL Eos # (Auto) 0.12 (0-0.50) K/uL Baso # (Auto) 0.06 (0-0.2) K/uL Immature Gran # (Auto) 0.11 H (0.00-0.02) K/uL PT 12.3 H (9.0-12.0) Seconds INR 1.2 H (0.9-1.1) Sodium (136-145) mmol/L Potassium (3.5-5.1) mmol/L Chloride (98-107) mmol/L Carbon Dioxide (21-32) mmol/L Anion Gap (3-11) BUN (6-23) mg/dl Creatinine (0.6-1.4) mg/dl Est Cr Clr Drug Dosing Est GFR ( Amer) ml/min Est GFR (Non-Af Amer) ml/min BUN/Creatinine Ratio (10-20) Glucose (70-99(Fasting)) mg/dl Calcium (8.5-10.1) mg/dl Magnesium (1.7-2.4) mg/dl Total Bilirubin (0.2-1.0) mg/dl AST (13-39) U/L ALT (7-52) U/L Alkaline Phosphatase (34-104) U/L Troponin I High Sens (0-20) pg/ml Total Protein (6.0-8.3) gm/dl Albumin (3.4-5.0) gm/dl Globulin (2.5-4.0) gm/dl Albumin/Globulin Ratio (0.9-2) TSH (0.300-4.500) uIu/ml SARS-CoV-2, RNA, NAAT (NEGATIVE) Administered Medications Heparin Sodium/Dextrose (Heparin Sodium/Dextrose) 25,000 units in 500 mls @ 33 mls/hr IV .[id number] [facility]; Protocol Stop: 03/15/22 15:44 Last Admin: 02/13/22 16:42 Dose: 1,650 units/hr, 33 mls/hr Documented by: [id number] Cosigned by: [id number] Discontinued Medications Magnesium Sulfate/Dextrose (Magnesium Sulfate / D5w) 1 gm in 100 mls @ 100 mls/hr IV NOW STA Stop: 02/13/22 16:49 Last Admin: 02/13/22 16:42 Dose: 100 mls/hr Documented by: [id number] Imaging Data Radiologist's Impression: Chest X-Ray 02/13/22 13:05 XR chest 1V portable CLINICAL HISTORY: afib TECHNIQUE: Single frontal radiograph of the chest was obtained. Comparison: None available at the time of this dictation. FINDINGS: Exam is limited by underpenetration. The cardiomediastinal silhouette is normal. Lungs are underinflated but clear. No evidence of pleural effusion or pneumothorax. IMPRESSION: No acute chest disease. ACT 112: Negative or not required by law. Electronically signed by: Mitch Hoang M.D. 02/13/2022 1:27 PM Discharge Plan Visit Data Chief Complaint: Illness Stated Complaint: ABNORMAL EKG ED Provider: Elvis Grijalva Discharge Problem: Atrial fibrillation, new onset, Hypomagnesemia Patient Disposition: Admitted As Inpatient Forms [facility] Pres[facility] Prescriptions: No Action atorvastatin 10 mg Tablet 10 mg PO HS RF: 0 lisinopril-hydrochlorothiazide 20-12.5 mg Tablet 2 tab PO QAM RF: 0 acetaminophen 500 mg Tablet 1,000 mg PO Q6H PRN (Reason: Pain) RF: 0 meloxicam 7.5 mg Tablet 7.5 mg PO QAM RF: 0 hydrocodone-acetaminophen 7.5-325 mg Tablet 1 tab PO Q6H PRN (Reason: Pain) RF: 0 aspirin [Aspirin Child] 81 mg Tablet,Chewable 81 mg PO QAM RF: 0 metformin RF: 0 cholecalciferol (vitamin D3) RF: 0 Referrals Referrals: Raysa Aldrich M.D. [Primary Care Provider] -
[2022-02-13 14:37] LABS: Basophils # (auto) 0.06 K/uL (0-0.2); Basophils % (auto) 0.7 %; Eosinophils # (auto) 0.12 K/uL (0-0.50); Eosinophils % (auto) 1.3 %; Hematocrit (blood only) 42.8 % (40.1-51.0); Hemoglobin 14.7 g/dl (14.0-18.0); Immature Granulocytes # (auto) 0.11 K/uL (0.00-0.02); Immature Granulocytes % (auto) 1.2 %; Lymphocytes # (auto) 2.03 K/uL (1.2-3.4); Lymphocytes % (auto) 22.3 %; Mean Corpuscular Hemoglobin 31.3 pg (25.0-34.0); Mean Corpuscular Hgb Conc 34.3 g/dL (32.0-36.0); Mean Corpuscular Volume 91.3 fL (80.0-100.0); Mean Platelet Volume 10.2 fL (9.4-12.4); Monocytes % (auto) 6.6 %; Neutrophils # (auto) 6.19 K/uL (1.4-6.5); Neutrophils % (auto) 67.9 %; Platelet Count 202 K/uL (130-400); RDW Coefficient of Variation 12.8 % (11.5-14.5); RDW Standard Deviation 41.9 fL (36.4-46.3); Red Blood Count 4.69 M/uL (4.63-6.08); White Blood Count 9.11 K/ul (4.8-10.8)
[2022-02-13 14:47] LABS: INR 1.2 (0.9-1.1); Prothrombin Time 12.3 Seconds (9.0-12.0)
[2022-02-13 15:05] LABS: Alanine Aminotransferase 18 U/L (7-52); Albumin Globulin Ratio 1.7 (0.9-2); Albumin Level 4.2 gm/dl (3.4-5.0); Alkaline Phosphatase 48 U/L (34-104); Anion Gap 6 (3-11); Aspartate Aminotransferase 15 U/L (13-39); BUN Creatinine Ratio 16.4 (10-20); Bilirubin,Total 1.1 mg/dl (0.2-1.0); Blood Urea Nitrogen 18 mg/dl (6-23); Calcium 9.3 mg/dl (8.5-10.1); Carbon Dioxide 27 mmol/L (21-32); Chloride 104 mmol/L (98-107); Est GFR (Non-African American) 68.1 ml/min; Globulin 2.5 gm/dl (2.5-4.0); Glucose 101 mg/dl (70-99(Fasting)); Magnesium 1.6 mg/dl (1.7-2.4); Potassium 4.1 mmol/L (3.5-5.1); Sodium 137 mmol/L (136-145); Total Protein 6.7 gm/dl (6.0-8.3)
[2022-02-13] MEDS ORDERED: Heparin IV Adult Wt-Based Standard *NO* Bolus Protocol IV ONE (15:17)
[2022-02-13] MEDS ORDERED: MAGNESIUM SULFATE / D5W 1 GM/100 ML BAG IV STA (15:50)
[2022-02-13] MEDS: HEPARIN SODIUM/DEXTROSE 25,000 UNITS/500 ML BAG IV SCH (16:42)
--- NOTE | 2022-02-13 16:44 | History & Physical Report ---
Date of Service February 13, 2022 Assessment & Plan (1) Afib: Plan: Noted to have atrial fibrillation with controlled rate on preop examination Patient denies any symptoms He has a remote history of stroke without any sequelae Intravenous heparin has been started and will continue Echo will be done Cardiology evaluation tomorrow Patient remains asymptomatic (2) Encounter for pre-operative examination: Plan: As above (3) Hypertension: Plan: History of hypertension Has been on lisinopril hydrochlorothiazide combination Will continue for now (4) Impaired fasting glucose: Plan: Has been on metformin Will hold metformin Put him on sliding scale insulin coverage while in the hospital Will get hemoglobin A1c (5) Stroke: Plan: History of a stroke without any sequelae Continue aspirin (6) GERD (gastroesophageal reflux disease): Plan: Takes ranitidine as needed (7) Hyperlipidemia: Plan: Continue atorvastatin (8) Morbid obesity with BMI of 40.0-44.9, adult: Plan: DVT prophylaxis Intravenous heparin CODE STATUS Full History of Present Illness Chief Complaint: Found to have atrial fibrillation on preop examination Primary Care Provider: Raysa Aldrich Is a 71-year-old obese male with significant past medical history of stroke without any sequelae, hypertension, hyperlipidemia, 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 He has been to the preop assessment center at [facility] for right shoulder arthroplasty which is a scheduled to be done on March [address] Black. He was noted to be in atrial fibrillation with controlled rate. He did not have any symptoms and has not been complaining of any symptoms of palpitation, chest pain, shortness of breath or any swelling of the legs. No fever and or chills and no abdominal pain, nausea and or vomiting. He was started with intravenous heparin and was admitted to telemetry unit for continuation of care. Allergies Allergy/AdvReac Type Severity Reaction Status Date / Time No Known Allergies Allergy Unknown Verified 02/09/22 11:36 Home Medications Medication Instructions Recorded Confirmed Type acetaminophen 500 mg tablet 1,000 mg PO Q6H PRN 02/09/22 02/09/22 History aspirin 81 mg chewable tablet 81 mg PO QAM 02/09/22 02/09/22 History atorvastatin 10 mg tablet 10 mg PO HS 02/09/22 02/09/22 History hydrocodone 7.5 mg-acetaminophen 1 tab PO Q6H PRN 02/09/22 02/09/22 History 325 mg tablet lisinopril 20 2 tab PO QAM 02/09/22 02/09/22 History mg-hydrochlorothiazide 12.5 mg tablet meloxicam 7.5 mg tablet 7.5 mg PO QAM 02/09/22 02/09/22 History cholecalciferol (vitamin D3) 02/13/22 History metformin 02/13/22 History Past Med/Surg History Medical History (Updated 02/13/22 @ 16:41 by Oma Anand MD) Afib newly detected at 02/13/22 PAT appt, pt sent to [facility] ER 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 L 02/27/18: SAB at L3-L4, L2-L3 2 attempts + PNB. Awareness with L TKA "heard saws and hammers." History of cholecystectomy History of colonoscopy History of ear surgery History of spinal fusion for scoliosis x2--2007 and 2009 Family History Sister Family history of reaction to anesthesia BP drops Social History Smoking Status: Former smoker Tobacco Type: Cigarettes Second Hand Exposure: No; Hx Alcohol Use: Yes Hx Substance Use: No Preferred Language: Fijian Communication Ability: Effective Visual And Stock Associate Required: No Beliefs That Will Affect Care: None Current Living Situation: Spouse Feels Safe at Home: Yes Assistive Devices: Glasses Review of Systems Review of Systems: All systems reviewed and are unremarkable except as noted below Physical Exam Physical Exam: Lying in bed comfortably Constitutional: well developed, well nourished and + obese; not ill appearing Eyes: PERRL, conjunctivae normal, anicteric sclerae ENMT: external ear and nose normal, oropharynx normal Neck: trachea midline, no thyromegaly Respiratory: no respiratory distress Auscultation: lungs clear to auscultation bilaterally; no crackles Cardiovascular: Rate/Rhythm: + irregularly irregular; not tachycardic Heart Sounds: normal S1 and normal S2; no murmur Extremities: + edema (Trace to 1+ edema bilaterally) Gastrointestinal (Abdomen): Inspection/Auscultation: + abdomen distended and normal bowel sounds Percussion/Palpation: abdomen nontender Has ventral hernia Musculoskeletal: Right shoulder is painful with every movement with restriction of movement Neurologic: Alert, awake and oriented x3. No focal sensory or no motor deficit appreciated Psychiatric: A+Ox3, euthymic affect Lymphatic: no cervical or axillary lymphadenopathy Results & Data Results & Data ([facility]) Vital Signs (Past 12 Hours) Vital Signs Temp Pulse Pulse Resp BP BP Pulse Ox 02/13/22 15:00 86 16 138/84 97 02/13/22 14:30 84 20 156/95 H 98 02/13/22 13:51 87 22 147/105 H 97 02/13/22 13:50 78 20 98 02/13/22 12:53 36.7 C 91 H 20 140/98 96 Laboratory Results Short CBC 02/13/22 Range/Units 14:14 WBC 9.11 (4.8-10.8) K/ul Hgb 14.7 (14.0-18.0) g/dl Hct 42.8 (40.1-51.0) % Plt Count 202 (130-400) K/uL BMP 02/13/22 14:14 Sodium 137 Potassium 4.1 Chloride 104 Carbon Dioxide 27 BUN 18 Creatinine 1.10 Glucose 101 H Calcium 9.3 Liver Function 02/13/22 Range/Units 14:14 Total Bilirubin 1.1 H (0.2-1.0) mg/dl AST 15 (13-39) U/L ALT 18 (7-52) U/L Alkaline Phosphatase 48 (34-104) U/L Albumin 4.2 (3.4-5.0) gm/dl Medications Administered Current Inpatient Medications Heparin Sodium/Dextrose (Heparin Sodium/Dextrose) 25,000 units in 500 mls @ 33 mls/hr IV .[id number]; Protocol Stop: 03/15/22 15:44 Magnesium Sulfate/Dextrose (Magnesium Sulfate / D5w) 1 gm in 100 mls @ 100 mls/hr IV NOW STA Stop: 02/13/22 16:49 Code Status & VTE Plan Code Status Full code
[2022-02-13] MEDS ORDERED: GLUCAGON FOR INJ 1 MG VIAL SQ PRN (16:48)
[2022-02-13] MEDS ORDERED: CARBOHYDRATES FOR HYPOGLYCEMIA PO PRN (16:48)
[2022-02-13] MEDS ORDERED: GLUCOSE 40% GEL 15 GM TUBE PO PRN (16:48)
[2022-02-13] MEDS ORDERED: GLUCOSE 10 TAB/TUBE PO PRN (16:48)
[2022-02-13] MEDS ORDERED: DEXTROSE 50% 50 ML SYRINGE IV PRN (16:48)
--- NOTE | 2022-02-13 16:51 | Electrocardiogram Report ---
Test Reason : Blood Pressure : / mmHG Vent. Rate : 083 BPM Atrial Rate : 074 BPM P-R Int : 000 ms QRS Dur : 080 ms QT Int : 332 ms P-R-T Axes : 000 -15 -04 degrees QTc Int : 390 ms Atrial fibrillation Abnormal ECG When compared with ECG of 13-FEB-2022 12:38, (unconfirmed) No significant change was found Confirmed by Lawrence Flynn ([id number]) on 02/13/2022 4:51:47 PM Referred By: Confirmed By:Alfredo Flynn
[2022-02-13] MEDS ORDERED: ACETAMINOPHEN 500 MG TAB PO PRN (18:36)
[2022-02-13] MEDS: INSULIN ASPART PER UNIT SC SCH (20:21)
[2022-02-13] MEDS ORDERED: ATORVASTATIN 10 MG TAB PO SCH (21:00)
[2022-02-13] MEDS ORDERED: MoRPHine SULFATE 4 MG/ML 1 ML CARP\\VIAL IV PRN (22:43)
[2022-02-13 23:40] LABS: Partial Thromboplastin Ratio 1.7
[2022-02-13 23:41] LABS: Partial Thromboplastin Time 46.4 Seconds (21.0-31.0)
[2022-02-14 06:04] LABS: Basophils # (auto) 0.06 K/uL (0-0.2); Basophils % (auto) 0.9 %; Eosinophils # (auto) 0.12 K/uL (0-0.50); Eosinophils % (auto) 1.9 %; Hematocrit (blood only) 40.8 % (40.1-51.0); Immature Granulocytes # (auto) 0.09 K/uL (0.00-0.02); Immature Granulocytes % (auto) 1.4 %; Lymphocytes # (auto) 2.13 K/uL (1.2-3.4); Lymphocytes % (auto) 33.1 %; Mean Corpuscular Hemoglobin 31.6 pg (25.0-34.0); Mean Corpuscular Hgb Conc 34.3 g/dL (32.0-36.0); Mean Corpuscular Volume 92.1 fL (80.0-100.0); Mean Platelet Volume 10.2 fL (9.4-12.4); Monocytes # (auto) 0.45 K/uL (0.24-0.82); Neutrophils # (auto) 3.58 K/uL (1.4-6.5); Neutrophils % (auto) 55.7 %; Platelet Count 163 K/uL (130-400); RDW Coefficient of Variation 12.6 % (11.5-14.5); RDW Standard Deviation 42.3 fL (36.4-46.3); Red Blood Count 4.43 M/uL (4.63-6.08); White Blood Count 6.43 K/ul (4.8-10.8)
[2022-02-14 06:31] LABS: Partial Thromboplastin Ratio 2.2
[2022-02-14 06:32] LABS: Partial Thromboplastin Time 60.6 Seconds (21.0-31.0)
[2022-02-14] MEDS: HEPARIN SODIUM/DEXTROSE 25,000 UNITS/500 ML BAG IV SCH (06:39)
[2022-02-14 06:40] LABS: Anion Gap 6 (3-11); BUN Creatinine Ratio 14.4 (10-20); Blood Urea Nitrogen 17 mg/dl (6-23); Calcium 8.7 mg/dl (8.5-10.1); Carbon Dioxide 27 mmol/L (21-32); Chloride 103 mmol/L (98-107); Chol HDL Ratio 4.3 (0-5); Cholesterol 121 mg/dl (0-200); Creatinine Clr Calc Pharmacy 75.6 ml/min; Est GFR (African American) 72.5 ml/min; Est GFR (Non-African American) 62.6 ml/min; Glucose 110 mg/dl (70-99(Fasting)); HDL Cholesterol 28 mg/dl; LDL Cholesterol Calculated 56 mg/dl; Magnesium 1.7 mg/dl (1.7-2.4); Sodium 136 mmol/L (136-145); Triglycerides 183 mg/dl (0-150); VLDL Cholesterol 37 mg/dl (0-30)
[2022-02-14 06:51] LABS: Estimated Average Glucose 123 mg/dl; Hemoglobin A1C 5.9 % (4.5-5.6)
[2022-02-14] MEDS: INSULIN ASPART PER UNIT SC SCH ×2 (08:40→12:38)
[2022-02-14] MEDS: MAGNESIUM SULFATE / D5W 1 GM/100 ML BAG IV SCH ×2 (08:44→10:49)
[2022-02-14] MEDS ORDERED: ASPIRIN 81 MG CHEW PO SCH (09:00)
[2022-02-14] MEDS ORDERED: FENOFIBRATE NANOCRYSTALLIZED 145 MG TABLET PO SCH (09:00)
[2022-02-14] MEDS ORDERED: LISINOPRIL/HCTZ 20/12.5MG 1 TAB TAB PO SCH (09:00)
--- NOTE | 2022-02-14 11:12 | Cardiology Consultation ---
Date of Consultation February 14, 2022 Assessment & Plan (1) Atrial fibrillation, new onset: (2) Hypomagnesemia: (3) Stroke: (4) Hypertension: Plan Patient admitted with newly diagnosed atrial fibrillation with controlled rates, during preop eval EKG. He remains asymptomatic. HR"s 80-100. Start low dose metoprolol 12.5 mg daily. Negative HS troponin. He has history of prior CVA. CHADSVASC score of 4-5 (age, HTN, CVA, and history of possible carotid vascular disease/aneurysm) Recommend skilled nursing anticoagulation with Eliquis 5 mg BID. (Verified DOAC is covered by insurance). Echo with normal LV function, no significant valvular disease. He does have severely enlarged left atrium, suggesting afib duration may have been present for quite some time. Ongoing rate control strategy likely to be recommended given his lack of symptoms. He has upcoming shoulder surgery. Given risk factors for ischemic heart disease and new onset afib, recommend nuclear Lexiscan stress test. will require 2 day study. He wishes to have this completed in [place]. Will arrange. He will stop meloxicam when taking Eliquis. First dose of Eliquis to be given prior to discharge. Stop Heparin at time of first dose. Discussed with RN. He will also have cardiology f/u in [place] upon hospital discharge to review stress testing and plan for upcoming shoulder surgery. He was previously evaluated by Dr. Ortiz in [place] in 2018. Case discussed with Dr. Iraheta. Stable for discharge. Supervising Physician Co-Signing Physician Notes Patient seen and examined at the bedside. Seen for preoperative testing yesterday. Routine ECG demonstrating atrial fibrillation with controlled ventricular response. Patient was referred to the emergency department and ultimately admitted to the telemetry floor. He remains asymptomatic. Telemetry revealing atrial fibrillation with controlled ventricular response. Denies chest pain or shortness of breath. Reports a history of cerebrovascular acciden t nearly 2 years ago. PE: VSS. GEN: NAD, AAO x3. Heart: Irregular rhythm, normal S1-S2. No murmur. Lungs: Clear bilateral, no rales, rhonchi, wheeze. Extremities: No edema. A/P: Agree with above PA-C history, physical exam, assessment and plan. 71-year-old patient admitted with asymptomatic atrial fibrillation with controlled ventricular response. Duration unknown. History of cerebrovascular accident. Recommend long-term, lifelong anticoagulation. Patient agreeable to Eliquis 5 mg twice daily. Add low-dose beta-viji, Toprol-XL 12.5 mg daily. Outpatient stress testing recommended prior to orthopedic surgery for further cardiovascular risk stratification. No further inpatient testing recommended at this time. We will arrange for cardiology follow-up in 1 to 2 weeks. History of Present Illness Reason for Consultation: Atrial fibrillation Requesting Physician: Dr. Anand Attending Physician: Dr. Iraheta History of Present Illness Patient is a 71 year old male who was having preop EKG in [facility] yesterday, found to be in rate controlled afib. Due to new diagnosis/abnormality, he was sent to the ER for evaluation. No prior cardiac history including arrhythmias, valvular disease/murmur, CAD, CHF. He previously saw Dr. Ortiz in [place] in 2018 following a stroke. He had a ZIO monitor at that time without afib. Patient was unaware of palpitations or arrhythmia. Duration unknown. He denies recent chest pain or unusual dyspnea. He notes chronic shoulder pain for which he is having future surgery. On admission he was started on IV heparin. HS troponin unremarkable. He was asymptomatic. At time of consult, patient resting in bed comfortably. Denies acute complaints. Notes dyspnea wiht exertional activities but this is ongoing and he attributes this to obesity/deconditioning. no recent chest pain. NO dizziness or lightheadeness. Allergies Allergy/AdvReac Type Severity Reaction Status Date / Time No Known Allergies Allergy Unknown Verified 02/13/22 17:43 Home Medications Medication Instructions Recorded Confirmed Type acetaminophen 500 mg tablet 1,000 mg PO Q6H PRN Pain 02/09/22 02/13/22 History atorvastatin 10 mg tablet 10 mg PO HS 02/09/22 02/13/22 History hydrocodone 7.5 mg-acetaminophen 1 tab PO Q6H PRN Pain 02/09/22 02/13/22 History 325 mg tablet lisinopril 20 2 tab PO QAM 02/09/22 02/13/22 History mg-hydrochlorothiazide 12.5 mg tablet cholecalciferol (vitamin D3) 125 15,000 unit PO DAILY 02/13/22 02/13/22 History mcg (5,000 unit) tablet (Vitamin D3) famotidine 20 mg tablet 20 mg PO BID PRN Acid Reflux 02/13/22 02/13/22 History metformin 1,000 mg tablet 1,000 mg PO BID 02/13/22 02/13/22 History apixaban 5 mg tablet (Eliquis) 5 mg PO BID 60 days #60 tabs 02/14/22 Rx fenofibrate nanocrystallized 145 145 mg PO QAM 60 days #30 tabs 02/14/22 Rx mg tablet metoprolol succinate 25 mg 12.5 mg PO QAM 60 days #30 tabs 02/14/22 Rx tablet,extended release 24 hr Patient History Medical History Afib newly detected at 02/13/22 PAT appt, pt sent to [facility] ER Aneurysm of left internal carotid artery 2 mm distal L cavernous ICA aneurysm, follows with [facility] cerebrovascular surgery, to return for 2 yr f/u 08/2022 per records GERD (gastroesophageal reflux disease) controlled per pt History of COVID-19 diagnosed 08/2021--mild symptoms--denies hospitalization or intubation--no symptoms now Hyperlipidemia Hypertension controlled, stable per pt Impaired fasting glucose Morbid obesity with BMI of 40.0-44.9, adult Scoliosis Stroke 2017, L temporal Surgical History History of bilateral cataract extraction History of bilateral knee replacement R 11/28/17: SAB at L3-L4 3 attempts + PNB. L 02/27/18: SAB at L3-L4, L2-L3 2 attempts + PNB. Awareness with L TKA "heard saws and hammers." History of cholecystectomy History of colonoscopy History of ear surgery History of spinal fusion for scoliosis x2--2007 and 2009 Family History Sister Family history of reaction to anesthesia BP drops Social History Smoking Status: Former smoker Tobacco Type: Cigarettes Second Hand Exposure: No; Hx Alcohol Use: Yes Alcohol type: beer Hx Substance Use: No Preferred Language: Swedish Communication Ability: Effective Aircraft Landing Gear Inspector Required: No Beliefs That Will Affect Care: None Current Living Situation: Spouse Other Information That Helps Us Care for You: No Feels Safe at Home: Yes Safety Concerns: Feels Safe At This Time Assistive Devices: None Review of Systems Review of Systems: All systems reviewed & are unremarkable except as noted in HPI & below Physical Exam Constitutional: WD/WN, vitals as above + obese; no acute distress Neck: + thick neck Respiratory: normal respiratory effort, lungs clear to auscultation Cardiovascular: Rate/Rhythm: + irregularly irregular Heart Sounds: no murmur Gastrointestinal (Abdomen): normal bowel sounds, soft, nontender, no hepatosplenomegaly Skin: no rashes, warm and dry Neurologic: PERRL, EOMI, accommodation nl, no face palsy, no dysarthria Psychiatric: A+Ox3, euthymic affect Results & Data ([facility]) Vital Signs (Past 12 Hours) Vital Signs Temp Pulse Pulse Pulse Resp BP BP 02/14/22 07:00 124 H 02/14/22 07:36 36.8 C 81 18 139/82 02/14/22 04:00 36.4 C L 82 18 102/70 02/13/22 23:08 36.5 C 81 16 108/72 Pulse Ox O2 Del Method 02/14/22 07:00 02/14/22 07:36 96 Room Air 02/14/22 04:00 98 Room Air 02/13/22 23:08 97 Room Air Laboratory Results Cardiac Enzymes 02/13/22 Range/Units 14:14 AST 15 (13-39) U/L Troponin I High Sens 6.0 (0-20) pg/ml Coagulation 02/13/22 02/13/22 02/14/22 Range/Units 14:14 22:37 05:49 PT 12.3 H (9.0-12.0) Seconds APTT 46.4 H* 60.6 H* (21.0-31.0) Seconds Lipids 02/14/22 Range/Units 05:49 Triglycerides 183 H (0-150) mg/dl Cholesterol 121 (0-200) mg/dl HDL Cholesterol 28 mg/dl Cholesterol/HDL Ratio 4.3 (0-5) CBC 02/13/22 02/14/22 Range/Units 14:14 05:49 WBC 9.11 6.43 (4.8-10.8) K/ul RBC 4.69 4.43 L (4.63-6.08) M/uL Hgb 14.7 14.0 (14.0-18.0) g/dl Hct 42.8 40.8 (40.1-51.0) % Plt Count 202 163 (130-400) K/uL Neut # (Auto) 6.19 3.58 (1.4-6.5) K/uL Lymph # (Auto) 2.03 2.13 (1.2-3.4) K/uL Bond # (Auto) 0.60 0.45 (0.24-0.82) K/uL Eos # (Auto) 0.12 0.12 (0-0.50) K/uL Baso # (Auto) 0.06 0.06 (0-0.2) K/uL Comprehensive Metabolic Panel 02/13/22 02/14/22 02/14/22 Range/Units 14:14 05:49 07:28 Sodium 137 136 (136-145) mmol/L Potassium 4.1 TNP 3.9 (3.5-5.1) mmol/L Chloride 104 103 (98-107) mmol/L Carbon Dioxide 27 27 (21-32) mmol/L BUN 18 17 (6-23) mg/dl Creatinine 1.10 1.18 (0.6-1.4) mg/dl Glucose 101 H 110 H (70-99(Fasting)) mg/dl Calcium 9.3 8.7 (8.5-10.1) mg/dl AST 15 (13-39) U/L ALT 18 (7-52) U/L Alkaline Phosphatase 48 (34-104) U/L Total Protein 6.7 (6.0-8.3) gm/dl Albumin 4.2 (3.4-5.0) gm/dl Intake and Output 02/13/22 02/14/22 02/14/22 22:59 06:59 14:59 Intake Total 900 / 1360.35 460.35 / 1360.35 215.95 / 215.95 Balance 900 / 1360.35 460.35 / 1360.35 215.95 / 215.95 Intake: IV 100 / 560.35 460.35 / 560.35 215.95 / 215.95 Heparin Sodium/Dextrose 25,000 460.35 / 460.35 15.95 / 15.95 units In 500 ml @ 1,650 UNITS/ HR 33 mls/hr IV .[id number] [facility] Rx #:[id number] Magnesium Sulfate / D5w 1 gm In 100 / 100 200 / 200 100 ml @ 50 mls/hr IV Q2H [facility] Rx#:[id number] Oral 800 / 800 Other: # Unmeasured Voids 1 1 Weight 127 kg Weight Measurement Method Built in [facility] Chest X-Ray 02/13/22 13:05 XR chest 1V portable CLINICAL HISTORY: afib TECHNIQUE: Single frontal radiograph of the chest was obtained. Comparison: None available at the time of this dictation. FINDINGS: Exam is limited by underpenetration. The cardiomediastinal silhouette is normal. Lungs are underinflated but clear. No evidence of pleural effusion or pneumothorax. IMPRESSION: No acute chest disease. ACT 112: Negative or not required by law. Electronically signed by: Mitch Hoang M.D. 02/13/2022 1:27 PM Diagnostic Findings Telemetry reviewed - atrial fibrillation with rates ranging 80-90 bpm at rest EKG's reviewed from admission Atrial fibrillation controlled rates. No acute/ischemic changes echo results reviewed - Echo report reviewed dated 02/14/22: No prior study for comparison Rhythm is atrial fibrillation with controlled ventricular rates EF 60-65% Moderate concentric LVH LA is severely dilated Aortic valve scerlosis mild without significant aortic valvular stenosis Mild MR Mild TR No evidence of pulm hypertension. Medications Administered Current Inpatient Medications Acetaminophen (Acetaminophen 500 Mg Tab) 1,000 mg PO Q6H PRN PRN Reason: Pain Stop: 03/15/22 18:35 Last Admin: 02/13/22 19:22 Dose: 1,000 mg Apixaban (Apixaban 5 Mg Tablet) 5 mg PO BID [facility] Stop: 03/16/22 13:24 Aspirin (Aspirin 81 Mg Chew) 81 mg PO QAM [facility] Stop: 03/16/22 08:59 Last Admin: 02/14/22 08:40 Dose: 81 mg Atorvastatin Calcium (Atorvastatin 10 Mg Tab) 10 mg PO HS [facility] Stop: 03/15/22 20:59 Last Admin: 02/13/22 20:28 Dose: 10 mg Dextrose (Dextrose 50% 50 Ml Syringe) 25 - 50 ml IV UD PRN; Protocol PRN Reason: Hypoglycemia Protocol Stop: 03/15/22 16:47 Fenofibrate (Fenofibrate Nanocrystallized 145 Mg Tablet) 145 mg PO QAM [facility] Stop: 03/16/22 08:59 Last Admin: 02/14/22 08:41 Dose: 145 mg Glucagon (Glucagon For Inj 1 Mg Vial) 1 mg SQ UD PRN; Protocol PRN Reason: Hypoglycemia Protocol Stop: 03/15/22 16:47 Glucose (Glucose 40% Gel 15 Gm Tube) 15 - 30 gm PO UD PRN; Protocol PRN Reason: Hypoglycemia Protocol Stop: 03/15/22 16:47 Glucose (Glucose 10 Tab/Tube) 4 - 8 tab PO UD PRN; Protocol PRN Reason: Hypoglycemia Treatment Stop: 03/15/22 16:47 Lisinopril/HCTZ (Lisinopril/Hctz 20/12.5mg 1 Tab Tab) 2 tab PO QAM [facility] Stop: 03/16/22 08:59 Last Admin: 02/14/22 08:40 Dose: 2 tab Insulin Aspart (Insulin Aspart Per Unit) 0 units SC ACHS [facility] Stop: 03/15/22 20:59 Last Admin: 02/14/22 12:38 Dose: Not Given Metoprolol Succinate (Metoprolol Succ 25mg Ext Rel Tab) 12.5 mg PO QAM [facility] Stop: 03/16/22 12:59 Miscellaneous (Carbohydrates For Hypoglycemia ) 15 - 30 gm PO UD PRN PRN Reason: Hypoglycemia Protocol Stop: 03/15/22 16:47 Morphine Sulfate (Morphine Sulfate 4 Mg/Ml 1 Ml Carp\\Vial) 3 mg IV Q4H PRN PRN Reason: Pain Stop: 02/27/22 22:42 Last Admin: 02/13/22 22:52 Dose: 3 mg
--- NOTE | 2022-02-14 11:28 | Electrocardiogram Report ---
Test Reason : Blood Pressure : / mmHG Vent. Rate : 077 BPM Atrial Rate : 076 BPM P-R Int : 000 ms QRS Dur : 090 ms QT Int : 378 ms P-R-T Axes : 000 -15 -03 degrees QTc Int : 427 ms Atrial fibrillation Poor R wave progression, consider anterior SC vs. lead placement vs. LVH Low voltage QRS Abnormal ECG When compared with ECG of 13-FEB-2022 13:00, No significant change was found Confirmed by Lawrence Flynn ([id number]) on 02/14/2022 11:28:41 AM Referred By: REFERRED SELF Confirmed By:Alfredo Flynn
[2022-02-14] MEDS ORDERED: METOPROLOL SUCC 25MG EXT REL TAB PO SCH (13:00)
[2022-02-14] MEDS ORDERED: APIXABAN 5 MG TABLET PO SCH (13:25)
--- NOTE | 2022-02-15 14:40 | Discharge Summary ---
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 He has been to the preop assessment center at [facility] for right shoulder arthroplasty which is a scheduled to be done on March [address] Black. He was noted to be in atrial fibrillation with controlled rate. He did not have any symptoms and has not been complaining of any symptoms of palpitation, chest pain, shortness of breath or any swelling of the legs. No fever and or chills and no abdominal pain, nausea and or vomiting. He was started with intravenous heparin and was admitted to telemetry unit for continuation of care. Principal Diagnosis New onset Atrial fibrillation Hypertriglyceridemia Discharge Exam Patient was seen and evaluated in his room, 203 Patient felt well, denies chest pain, shortness of breath or leg swelling. On exam, appears pleasant and comfortable. Breathing comfortably on room air. Heart Rate is irregular but not rapid, no murmurs. No lower extremity edema. Discharge Data Allergies Allergy/AdvReac Type Severity Reaction Status Date / Time No Known Allergies Allergy Unknown Verified 02/13/22 17:43 Consultations 02/13/22 15:43 ED Decision to Admit Stat 02/13/22 16:44 Consult Cardiology Routine Hospital Course (1) Afib: (2) Encounter for pre-operative examination: (3) Hypertension: (4) Impaired fasting glucose: (5) Stroke: (6) GERD (gastroesophageal reflux disease): (7) Hyperlipidemia: (8) Morbid obesity with BMI of 40.0-44.9, adult: Plan Mr Chalo Coleman is a 71 year old man with history of prior stroke with no residual deficit, HTN, HLD, obesity, NIDDM was admitted 02/13 after being sent to the ER for new diagnosis of A fib discovered during his routine pre-operative evaluation. He had a TTE shows EF 60-65%, mod LVH, severe LA dilation, mild MR, mild TR suggesting his atrial fibrillation has been long standing. He was placed on heparin drip then switched to Eliquis 5mg BID at discharge. He was seen by Cardiology and also started on Toprol 12.5mg daily and will have follow up with them for outpatient stress test prior to his shoulder surgery. Patient was discharged home in stable condition, no complaints or concerns at time of discharge, all questions were answered. Of note, he was started on fenofibrate for elevated TG despite being on statin therapy. He will need to follow up with his PCP for stroke and CV disease risk factor modifications. Total Time Total Time Spent Total Time Spent (In Minutes): 35 Discharge Plan Discharge Items Patient Disposition: Home - Self-Care Reason For Visit: Newly diagnosed Atrial Fibrillation Discharge Diagnosis: Newly Diagnosed Atrial Fibrillation Condition on Discharge: Good Activity: Resume your previous activity Non-emergency contact: Primary Care Provider and Electromechanical Technician Call non-emergency contact if: you have any medication questions Follow-up/Referrals: Byron Ortiz M.D. [Outside Practitioners] - Raysa Aldrich M.D. [Primary Care Provider] - (Dr Aldrich's office will call you with a follow up appointment. They are aware of your hospital stay. ) Diet: Heart Healthy Addtl Attending Provider Instructions: You were diagnosed with A fib during your pre-op evaluation for your shoulder surgery You were seen by Cardiology while here and started on Metoprolol 12.5mg daily and Eliquis 5mg twice a day (Eliquis is a blood thinner) You will need to follow up with Cardiology for an outpatient stress test before you can proceed with surgery You should follow up with your Neurologist about whether you need to remain on Aspirin while being on Eliquis Please follow up with your primary care physician to arrange for sleep study to evaluate whether you have sleep apnea. Your Triglycerides were high despite being on atorvastatin, so you were also started on fenofibrate. Pending Studies at Discharge: No Stand-Alone Forms: My [facility], Smoking Cessation Medications and DC Order Prescriptions: New metoprolol succinate 25 mg Tablet Extended Release 24 Hr 12.5 mg PO QAM 60 Days Qty: 30 0RF fenofibrate nanocrystallized 145 mg Tablet 145 mg PO QAM 60 Days Qty: 30 1RF Eliquis 5 mg Tablet 5 mg PO BID 60 Days Qty: 60 1RF Continued atorvastatin 10 mg Tablet 10 mg PO HS lisinopril-hydrochlorothiazide 20-12.5 mg Tablet 2 tab PO QAM acetaminophen 500 mg Tablet 1,000 mg PO Q6H PRN (Reason: Pain) hydrocodone-acetaminophen 7.5-325 mg Tablet 1 tab PO Q6H PRN (Reason: Pain) famotidine 20 mg tablet 20 mg PO BID PRN (Reason: Acid Reflux) metformin 1,000 mg tablet 1,000 mg PO BID cholecalciferol (vitamin D3) [Vitamin D3] 125 mcg (5,000 unit) Tablet 15,000 unit PO DAILY Discontinued meloxicam 15 mg tablet 15 mg PO DAILY Discharge Orders: Discharge Order (Routine); Ordered 02/14/22 Ordered By: Toro Terry Admission Data Admit Date/Time: 02/13/22 16:52 Attending Provider: Toro Terry Admit Provider: Oma Anand Primary Care Provider: Raysa Aldrich Other Providers: Oma Anand ; Chalo Rios ; Sandro Mena ; Ephraim Abbasi ; Sanjeev Iraheta ; Arcenio Garcia ; Abdon Gordon ; Karen Hernandez ; Veronica Martinez ; Pinky Sheppard ; Michele Gurrola Other Interventions: Discharge Summary Assessment (RN) Last Done: 02/14/22 15:27
== END 2022-02-14 16:17 | disposition home or self-care (01) | DRG 309 ==
LOC: ED 12:48 → SUATTDRO 16:52 → 2E 16:52 → INTOOBSV 16:52 → 2E 17:35

== ENCOUNTER 2022-03-08 08:45 | Inpatient (IN) ==
--- NOTE | 2022-02-09 13:47 | PAT Medication Instructions ---
Medication Instructions Date of Service February 09, 2022 Home Medications acetaminophen 500 mg tablet 1,000 mg PO Q6H PRN aspirin 81 mg chewable tablet 81 mg PO QAM atorvastatin 10 mg tablet 10 mg PO HS hydrocodone 7.5 mg-acetaminophen 325 mg tablet 1 tab PO Q6H PRN lisinopril 20 mg-hydrochlorothiazide 12.5 mg tablet 2 tab PO QAM meloxicam 7.5 mg tablet 7.5 mg PO QAM ASK your surgeon for instructions meloxicam 7.5 mg tablet 7.5 mg PO QAM ASK your prescriber and surgeon aspirin 81 mg chewable tablet 81 mg PO QAM DO NOT take the morning of surgery lisinopril 20 mg-hydrochlorothiazide 12.5 mg tablet 2 tab PO QAM Take morning of surgery With a small sip of water, OTHERWISE NOTHING TO EAT OR DRINK AFTER MIDNIGHT: acetaminophen 500 mg tablet 1,000 mg PO Q6H PRN (if needed) hydrocodone 7.5 mg-acetaminophen 325 mg tablet 1 tab PO Q6H PRN (if needed) Take evening before surgery acetaminophen 500 mg tablet 1,000 mg PO Q6H PRN (if needed) atorvastatin 10 mg tablet 10 mg PO HS hydrocodone 7.5 mg-acetaminophen 325 mg tablet 1 tab PO Q6H PRN (if needed) Other Notes If you have any questions please call us at [phone] or [phone] or [phone] or [phone]
--- NOTE | 2022-02-13 12:05 | Anesthesiology Consultation ---
Date of Service February 13, 2022 Assessment & Plan (1) Encounter for pre-operative examination: - awaiting [facility] hospitalization outcome and determination on outpatient care/pre-op evaluation. - atrial fibrillation detected at PAT appt, detailed discussion with pt who is agreeable to be further evaluated and managed in ER. Pt stable in office and asymptomatic, transported to ER via wheelchair with copy of EKG. Pt's notified. Cady with surgeon's office made aware. Report called to foam chargerRN. Ardon with PCP office made aware. - L ICA aneurysm: discussed with Dr. Zuñiga who advised from this aspect nothing further needed from cerebrovascular surgery. - check BSG am DOS. - short term memory loss since stroke per who will accompany him DOS. - COVID screening: Per assessment on 02/13/2022: Travel screen negative, no known COVID-19 positive contacts or current COVID-19 related symptoms in past 2 weeks. Pt vaccinated. Surgeon arranging preop COVID testing, scheduled 03/06/2022. Awaiting results. Chart Review Chart Review: Pending: Refer to Additional Notes / Consult section and Patient seen in Pre Admission Testing Teaching & Discussion Pre-Anesthesia Teaching/Discussion Notes: Instructed NPO after midnight before surgery, except medications with 15 cc of water. Medication instructions provi ded according to the [facility] guidelines. History Surgery Operation Date: 03/08/22 10:40 Proposed Procedures p Right Total Shoulder Arthroplasty - Lázaro Black M.D. Height/Weight Height: 5 ft 7 in Weight: 128.4 kg Allergies Allergy/AdvReac Type Severity Reaction Status Date / Time No Known Allergies Allergy Unknown Verified 02/13/22 17:43 Medications Home Medications Medication Instructions Recorded Confirmed Last Taken acetaminophen 500 mg tablet 1,000 mg PO Q6H PRN Pain 02/09/22 02/13/22 Unknown atorvastatin 10 mg tablet 10 mg PO HS 02/09/22 02/13/22 Unknown hydrocodone 7.5 mg-acetaminophen 1 tab PO Q6H PRN Pain 02/09/22 02/13/22 Unknown 325 mg tablet lisinopril 20 2 tab PO QAM 02/09/22 02/13/22 Unknown mg-hydrochlorothiazide 12.5 mg tablet cholecalciferol (vitamin D3) 125 15,000 unit PO DAILY 02/13/22 02/13/22 Unknown mcg (5,000 unit) tablet (Vitamin D3) famotidine 20 mg tablet 20 mg PO BID PRN Acid Reflux 02/13/22 02/13/22 Unknown meloxicam 15 mg tablet 15 mg PO DAILY 02/13/22 02/13/22 Unknown metformin 1,000 mg tablet 1,000 mg PO BID 02/13/22 02/13/22 Unknown Past Medical History Medical History Afib newly detected at 02/13/22 PAT appt, pt sent to [facility] ER 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 Exercise / Class Metabolic Activity II 4-5 Yardwork/Stairs/Walk up hill (denies CP or SOB with 1 FOS) Past Family History Family History Sister Family history of reaction to anesthesia BP drops Past Surgical History Surgical History History of bilateral cataract extraction History of bilateral knee replacement R 11/28/17: SAB at L3-L4 3 attempts + PNB. L 02/27/18: SAB at L3-L4, L2-L3 2 attempts + PNB. Awareness with L TKA "heard saws and hammers." History of cholecystectomy History of colonoscopy History of ear surgery History of spinal fusion for scoliosis x2--2007 and 2009 Past Anesthesia History Other (awareness with 02/2018 TKA; sister with severe hypotension during renal surgery felt to be d/t combination of anesthesia and pain medication) History of PONV No Hx of PONV and No Hx of Motion Sickness Social History Smoking Status: Former smoker Do You Dip or Chew Tobacco: No Smoking End Date: quit 20yrs ago Hx Alcohol Use: Yes alcohol intake frequency: a few times a month Hx Substance Use: No substance use type: does not use Review of Systems Snoring, denies witnessed apneas. Patient denies chest pain, shortness of breath, dyspnea on exertion, fever, chills, cough, wheezing, or palpitations. Physical Exam Vital Signs Vitals BP 120/84 P 90 TEMP 98.3 SP02 98% on RA RESP 17 Physical Patient resting comfortably in chair, in NAD, responding normally per Full cervical extension range of motion without pain TMD 3 finger breadths Mallampati Score 3 Dentition: intact, several chipped teeth throughout; denies loose teeth, caps/crowns, implants or bridges Lungs: normal respiratory effort. Clear throughout to auscultation, no adventitious breath sounds Cardiac: irregularly irregular rhythm, no murmurs noted Carotid arteries: negative bruit bilat Lab Results Anesthesia Preop Results Results Anesthesia Widget: WBC 6.43 K/ul (4.8-10.8) 02/14/22 Hgb 14.0 g/dl (14.0-18.0) 02/14/22 Hct 40.8 % (40.1-51.0) 02/14/22 Plt 163 K/uL (130-400) 02/14/22 Na 136 mmol/L (136-145) 02/14/22 K 3.9 mmol/L (3.5-5.1) 02/14/22 Cl 103 mmol/L (98-107) 02/14/22 CO2 27 mmol/L (21-32) 02/14/22 BUN 17 mg/dl (6-23) 02/14/22 Creat 1.18 mg/dl (0.6-1.4) 02/14/22 Glucose Level 110 mg/dl (70-99(Fasting)) H 02/14/22 POC Glucose 115 mg/dl (70-99) H 02/14/22 PT 12.3 Seconds (9.0-12.0) H 02/13/22 PTT 60.6 Seconds (21.0-31.0) H* 02/14/22 INR 1.2 (0.9-1.1) H 02/13/22 TSH 1.140 uIu/ml (0.300-4.500) 02/13/22 HA1c 5.9 % (4.5-5.6) H 02/14/22 Urine Color Yellow 02/13/22 Urine Appearance Clear (Clear) 02/13/22 Urine pH 5.0 (4.5-7.5) 02/13/22 Urine Specific [place] 1.021 (1.000-1.030) 02/13/22 Urine Protein Negative (Negative) 02/13/22 Urine Glucose (UA) Negative (Negative) 02/13/22 Urine Ketones Trace (Negative) H 02/13/22 Urine Blood Negative (Negative) 02/13/22 Urine Nitrite Negative (Negative) 02/13/22 Urine Bilirubin Negative (Negative) 02/13/22 Urine Urobilinogen Negative (Negative) 02/13/22 Urine Leukocyte Esterase Negative (Negative) 02/13/22 SARS-CoV-2, RNA, NAAT NEGATIVE (NEGATIVE) 02/13/22 Blood Type A Positive 02/13/22 Antibody Screen NEGATIVE 02/13/22 Testing Electrocardiogram Date: 02/13/22 *unconfirmed* afib, rate 88 bpm Chest X-Ray Date: 02/13/22 *1 view* Exam is limited by underpenetration. The cardiomediastinal silhouette is normal. Lungs are underinflated but clear. No evidence of pleural effusion or pneumothorax. IMPRESSION: No acute chest disease.
--- NOTE | 2022-03-07 13:17 | History & Physical Report ---
Date of Service March 07, 2022 Assessment & Plan (1) Primary osteoarthritis, right shoulder: Plan: He has severe right shoulder glenohumeral joint arthritis with an intact rotator cuff. He has failed a long course of conservative treatment including numerous injections. He would like to pursue definitive surgical intervention for this problem. I offered him a right anatomic total shoulder arthroplasty. Risks, benefits, and alternatives of surgery were explained in detail. The surgical procedure, as well as postoperative recovery and rehabilitation, was also explained in detail. Risks include bleeding; infection; damage to surrounding structures such as nerves, blood vessels, and tendons that run in the area; persistent pain or stiffness; hardware failure; dislocation; brachial plexus palsy; blood clots; or need for further surgery. The patient understands all of this and wishes to proceed with surgery. Informed consent was obtained. History of Present Illness Chief Complaint: Right shoulder pain Primary Care Provider: Raysa Aldrich Mr. Coleman is a 71-year-old male with chronic right shoulder pain for many years with gradual aggressive worsening. He has failed an extended course of conservative treatment with multiple injections. His pain and stiffness are significantly limiting to him. Allergies Allergy/AdvReac Type Severity Reaction Status Date / Time No Known Allergies Allergy Unknown Verified 02/13/22 17:43 Home Medications Medication Instructions Recorded Confirmed Type acetaminophen 500 mg tablet 1,000 mg PO Q6H PRN Pain 02/09/22 02/13/22 History atorvastatin 10 mg tablet 10 mg PO HS 02/09/22 02/13/22 History hydrocodone 7.5 mg-acetaminophen 1 tab PO Q6H PRN Pain 02/09/22 02/13/22 History 325 mg tablet lisinopril 20 2 tab PO QAM 02/09/22 02/13/22 History mg-hydrochlorothiazide 12.5 mg tablet cholecalciferol (vitamin D3) 125 15,000 unit PO DAILY 02/13/22 02/13/22 History mcg (5,000 unit) tablet (Vitamin D3) famotidine 20 mg tablet 20 mg PO BID PRN Acid Reflux 02/13/22 02/13/22 History metformin 1,000 mg tablet 1,000 mg PO BID 02/13/22 02/13/22 History apixaban 5 mg tablet (Eliquis) 5 mg PO BID 60 days #60 tabs 02/14/22 Rx fenofibrate nanocrystallized 145 145 mg PO QAM 60 days #30 tabs 02/14/22 Rx mg tablet metoprolol succinate 25 mg 12.5 mg PO QAM 60 days #30 tabs 02/14/22 Rx tablet,extended release 24 hr Past Med/Surg History Medical History Afib newly detected at 02/13/22 PAT appt, pt sent to [facility] ER Aneurysm of left internal carotid artery 2 mm distal L cavernous ICA aneurysm, follows with [facility] cerebrovascular surgery, to return for 2 yr f/u 08/2022 per records GERD (gastroesophageal reflux disease) controlled per pt History of COVID-19 diagnosed 08/2021--mild symptoms--denies hospitalization or intubation--no symptoms now Hyperlipidemia Hypertension controlled, stable per pt Impaired fasting glucose Morbid obesity with BMI of 40.0-44.9, adult Scoliosis Stroke 2017, L temporal Surgical History History of bilateral cataract extraction History of bilateral knee replacement R 11/28/17: SAB at L3-L4 3 attempts + PNB. L 02/27/18: SAB at L3-L4, L2-L3 2 attempts + PNB. Awareness with L TKA "heard saws and hammers." History of cholecystectomy History of colonoscopy History of ear surgery History of spinal fusion for scoliosis x2--2007 and 2009 Family History Sister Family history of reaction to anesthesia BP drops Social History Smoking Status: Former smoker Tobacco Type: Cigarettes Second Hand Exposure: No; Hx Alcohol Use: Yes Alcohol type: beer Hx Substance Use: No Preferred Language: Syriac Communication Ability: Effective Flatwork Ironer Required: No Beliefs That Will Affect Care: None Current Living Situation: Spouse Feels Safe at Home: Yes Assistive Devices: None Physical Exam Physical Exam: Examination of the right shoulder shows moderate limitation in shoulder range of motion due to pain, with palpable crepitus during motion. Rotator cuff strength is well maintained. Results & Data ([facility]) Diagnostic Findings Previous x-rays of the right shoulder from December 29 were reviewed. They show severe glenohumeral joint arthritis. No obvious proximal migration of the humeral head. Previous MRI of the right shoulder from January 10 was reviewed. It shows some rotator cuff tendinopathy, but no high-grade partial or full-thickness rotator cuff tears. There is severe glenohumeral and acromioclavicular joint arthritis.
[~2022-03-08 08:45] MED LIST changes: -ASPI81TA28 PO; -ATOR10TA82 PO; -BUPIVACAINE LIPOSOME 266 MG, BUPIVACAINE/EPINEPHRINE INJ 50 ML, SODIUM CHLORIDE 0.9% PF... INFIL SCH; -CEFAZOLIN 3000MG IV PUSH 22.5 ML IV SCH; +CeleBREX 200 MG CAP PO SCH; +GABAPENTIN 300 MG CAP PO SCH; -GABAPENTIN 600 MG PO SCH; -LACTATED RINGER'S 1000ML 1,000 ML IV SCH; -LACTATED RINGER'S 1000ML 500 ML IV SCH; -LACTATED RINGER'S 1000ML IV SCH; -LISI-787 PO; +LR 15ML/HR IV SCH; -MELO7.5T5 PO; -METOCLOPRAMIDE HCL 10 MG TAB PO SCH; +METOCLOPRAMIDE HCL 10 MG TABLET PO SCH; -ROPIVACAINE 0.5% 5 MG/ML 30 ML VIAL ONE; -SCOPOLAMINE 1.5 MG TDSY TD SCH; +TRANEXAMIC ACID 1,000 MG **IV Pre-op IV SCH; -TRANEXAMIC ACID INJ 1,000 MG x 1 Bag Intra-Op IV SCH; -[UNRECOGNIZED DRUG - OTHER] PO; +dexAMETHasone 4 MG TAB PO SCH
[2022-03-08] MEDS ORDERED: PROPOFOL IV EMULSION 10 MG/ML 20 ML VIAL IV ONE (08:53)
[2022-03-08] MEDS ORDERED: LIDOCAINE 2% 2 ML VIAL/AMP(20MG/ML) INFIL ONE (08:53)
[2022-03-08] MEDS ORDERED: ONDANSETRON INJ 2 MG/ML 2 ML VIAL ONE (08:53)
[2022-03-08] MEDS ORDERED: DEXAMETHASONE SOD INJ 4 MG/ML VIAL ONE (08:53)
[2022-03-08] MEDS ORDERED: MIDAZOLAM HCL 1 MG/ML 2ML VIAL ONE (08:53)
[2022-03-08] MEDS ORDERED: fentaNYL citrate 100 MCG/2 ML VIAL ONE (08:54)
[2022-03-08] MEDS ORDERED: ROCURONIUM BROMIDE 10 MG/ML 5 ML VIAL IV ONE (08:54)
--- NOTE | 2022-03-08 09:48 | History & Physical Bridge Note ---
Date of Service March 08, 2022 History & Physical Bridge Note I have examined the patient, reviewed the History & Physical and in the interval since the performance of the History & Physical I have noted the following changes of clinical significance: Patient's notes that his medication for atrial fibrillation was updated by the performance engineer very recently. He was taken off aspirin and placed on Eliquis instead. He did pause the Eliquis a few days ago for the surgery.
[2022-03-08] MEDS ORDERED: fentaNYL citrate 100 MCG/2 ML VIAL IV PRN (10:02)
[2022-03-08] MEDS ORDERED: ONDANSETRON INJ 2 MG/ML 2 ML VIAL IV PRN ×2 (10:02→13:55)
[2022-03-08] MEDS ORDERED: ATROPINE SULFATE 0.1 MG/ML 10ML SYR IV PRN (10:02)
[2022-03-08] MEDS ORDERED: ePHEDrine sulfate 50 MG/ML AMP IV PRN (10:02)
[2022-03-08] MEDS ORDERED: ESMOLOL HCL INJ 10 MG/ML 10ML VIAL IV ONE (10:51)
[2022-03-08] MEDS ORDERED: METOPROLOL TARTRATE 1 MG/ML VIAL IV ONE (11:06)
[2022-03-08] MEDS ORDERED: GLYCOPYRROLATE 0.2 MG/ML VIAL ONE (12:19)
[2022-03-08] MEDS ORDERED: NEOSTIGMINE METHYLSULFATE 1 MG/ML 10ML VIAL ONE (12:19)
--- NOTE | 2022-03-08 12:39 | Operative Report ---
Post Operative Report Pre & Post Diagnosis Operation Date: 03/08/22 10:45 Pre-Op Diagnosis: Right Shoulder Osteoarthritis Post-Op Diagnosis: Right Shoulder Osteoarthritis, Rotator Cuff Tear, proximal biceps tendon rupture I identified the patient and participated in the time-out.: Yes Procedure Operation Date: 03/08/22 10:45 Actual Procedures Right reverse total shoulder arthroplasty (36569) - Lázaro Black M.D. Surgeon Lázaro Black Plane Tender Layo Rocha PA-C Estimated Blood Loss 75 Findings Consistent with Post-Op Diagnosis Specimens None Drains Same Anesthesia Type General Regional Complications Bioburden found inside depth gauge Disposition Disposition: Recovery Room Indications Mr. Coleman is a 71-year-old male with chronic right shoulder pain. History, clinical exam, and imaging were consistent with the above diagnosis. Risks, benefits, and alternatives of surgery were explained in detail. The patient understood all this and wished to proceed. Description of Procedure Components Implanted: Tornier Reverse Total Shoulder implants Perform glenoid baseplate: 29mm, 15 degree full wedge with 6.5mm central screw and 5.0mm peripheral screws Glenosphere: 39mm, +3mm, eccentric offset Ascend Flex humeral stem: 4B Standard length (78mm) Humeral tray: 3.5 mm offset, +0mm thickness Polyethylene insert: 39mm, +9mm thickness Patient was identified in the preoperative holding area. Operative extremity was marked. Regional blockade was given by the Anesthesia Staff. Patient was then brought back to the operating room, and general anesthesia was induced without complication. Appropriate weight-based dose of Ancef was infused intravenously for antibiotic prophylaxis. The patient was then placed in the beachchair position. Right arm was then prepped and draped in a standard sterile fashion using Chlorhexidine prep. A standard deltopectoral incision was made through the skin and subcutaneous tissue. The cephalic vein was identified and retracted medially. Small branches to the deltoid were coagulated as necessary. The clavipectoral fascia was then incised and the subdeltoid space was opened. Unfortunately, a full- thickness tear was discovered within the supraspinatus tendon of the rotator cuff. There was also more diffuse severe rotator cuff tendinopathy, especially within the subscapularis tendon. Due to concern for potential postoperative rupture of the rotator cuff, which would require revision to a reverse total shoulder arthroplasty, I decided to proceed with a reverse total shoulder rather than an anatomic as had been planned preoperatively. The remainder of the tendinopathic supraspinatus tendon was divided off of its greater tuberosity in sertion. The biceps tendon was noted to have ruptured preoperatively, and was not present within the bicipital groove. The remaining subscapularis tendon was elevated subperiosteally off of the lesser tuberosity. The glenohumeral joint was then dislocated, and large osteophytes were debrided with a ronguer. The intramedullary canal of the humerus was then opened with a canal finder. The humeral head cut was then made in the appropriate inclination and version using the cutting guide. The humeral canal was then sequentially broached to the appropriate size. A protective cap was then placed on top of the humeral trial. I then turned my attention to the glenoid. The proximal stump of the biceps tendon was excised, along with the labrum circumferentially around the glenoid. I was unfortunately unable to use the Blueprint drill guide that was created preoperatively due to the different reaming axis for the glenoid component of an anatomic versus reverse total shoulder. Preoperatively, the patient's glenoid had a 16 degree retroversion, and a 15 degree drill guide was then positioned on the glenoid, and the guidepin inserted. The 15 degree angled reamer was then inserted over the guidepin and an reamed to an appropriate depth. The central screw hole was drilled, and appropriate length 6.5mm central screw was selected. The baseplate was then implanted into place according to our preoperative Blueprint plan by tightening down the central screw. A peripheral 5mm nonlocking screw was placed posteriorly first for additional compression of the baseplate, and then additional locking 5 mm peripheral screws were placed to complete fixation of the baseplate. Glenosphere was then impacted and secured. A trial humeral tray and insert were placed on the trial humeral stem, and a trial reduction was carried out. Once I achieved acceptable joint stability and range of motion with the trial implants, the final humeral implants were assembled on the back table and then impacted into position. I then took the shoulder through full range of motion to ensure good stability and acceptable motion. Wound was then copiously irrigated with sterile saline. Deep fascia was closed with 0 V-lock suture. Subcutaneous tissue was closed with 2-0 V-lock, and skin was closed with 3-0 V-lock. Skin was then sealed with Dermabond. Sterile dressings were then applied with a waterproof silver-impregnated dressing, and the arm was placed into a sling. The patient was awakened from anesthesia and taken to the Post Anesthesia Care Unit in stable condition. There were no immediate complications from the procedure. I was present and scrubbed for the entire procedure, with the exception of final skin closure and dressing application. Due to the complex nature of the procedure, the entire surgery was performed with the operational assistance of Layo Rocha PA-C. The assistant head cashier, under direct supervision, was involved in the performance of all aspects of the surgical proc edure including hemostasis, tissue incision and retraction, instrument management, patient positioning, and wound closure. I attest to the content of the Intraoperative Record and any orders documented therein. Any exceptions are noted below.
--- NOTE | 2022-03-08 13:52 | XRay Report ---
XR shoulder RT min 2V routine HISTORY: 71 years-old Male Post shoulder surgery right shoulder arthroplasty COMPARISON: Chest radiograph 02/13/2022 TECHNIQUE: 2 views of the right shoulder FINDINGS: Reverse right shoulder total joint arthroplasty. No acute fracture or unexpected opaque foreign body. Expected postoperative soft tissue swelling with deep tissue air. Moderate degeneration of the AC sheron int. Cardiomegaly. IMPRESSION: Reverse right shoulder total joint arthroplasty with expected postoperative changes. ACT 112: Negative or not required by law. The above report was generated using voice recognition software. It may contain grammatical, syntax o r spelling errors. Electronically signed by: Yuniel Holbrook M.D. 03/08/2022 1:50 PM
[2022-03-08] MEDS ORDERED: METOCLOPRAMIDE HCL INJ 5 MG/ML 2 ML VIAL IV PRN (13:55)
[2022-03-08] MEDS ORDERED: FAMOTIDINE 20 MG TAB PO PRN (13:55)
[2022-03-08] MEDS ORDERED: bisacodyL 10 MG SUPP PR PRN (13:55)
[2022-03-08] MEDS ORDERED: NALOXONE HCL 0.4 MG/1 ML VIAL/CARP IV PRN (13:55)
[2022-03-08] MEDS ORDERED: MAGNESIUM HYDROXIDE SUSP 30 ML UDC PO PRN (13:55)
[2022-03-08] MEDS ORDERED: PHARMACY GLYCEMIC MGMT CONSULT PRN (13:55)
--- NOTE | 2022-03-08 14:10 | Anesthesiology Progress Note ---
Date of Service March 08, 2022 Anesthesia Post Procedure Vital Signs Vital Signs: Temp Pulse Resp BP Pulse Ox O2 Del Method O2 Flow Rate 03/08/22 13:25 89 16 134/85 95 Nasal Cannula 3 03/08/22 13:15 87 16 147/67 H 94 Nasal Cannula 3 03/08/22 13:05 97.2 F L 88 16 153/91 H 93 Nasal Cannula 3 03/08/22 12:55 99 H 16 135/89 92 Oxymask 5 03/08/22 12:46 96.8 F L 105 H 16 148/99 H 92 Oxymask 5 03/08/22 09:20 97.9 F 105 H 16 161/98 H 96 Room Air Pain Intensity Right Shoulder: Pain Intensity: 5 Transfer of Care Handoff Completed per policy Notes Mental Status: alert / awake / arousable and participated in evaluation Patient Amnestic to Procedure: Yes Nausea / Vomiting: adequately controlled Pain: adequately controlled Airway Patency, RR, SpO2: stable & adequate BP & HR: stable & adequate Hydration State: stable & adequate Anesthetic Complications: no major complications apparent and Pt Satisfied with anesthetic care
[2022-03-08] MEDS ORDERED: CARBOHYDRATES FOR HYPOGLYCEMIA PO PRN (14:30)
[2022-03-08] MEDS ORDERED: NovoLIN-N (NPH) PER UNIT CHARGE SQ ONE (14:30)
[2022-03-08] MEDS ORDERED: GLUCOSE 10 TAB/TUBE PO PRN (14:30)
[2022-03-08] MEDS ORDERED: GLUCOSE 40% GEL 15 GM TUBE PO PRN (14:30)
[2022-03-08] MEDS ORDERED: DEXTROSE 50% 50 ML SYRINGE IV PRN (14:30)
[2022-03-08] MEDS ORDERED: GLUCAGON FOR INJ 1 MG VIAL IM PRN (14:30)
--- NOTE | 2022-03-08 14:31 | Pharmacy Report ---
Pharmacy Glycemic Short Note 2 - Date of Service March 08, 2022 - Glycemic Short BSG Results (Last 24 hours): 03/08/22 03/08/22 09:22 14:08 POC Glucose 101 H 136 H OUTPATIENT ANTIDIABETIC REGIMEN: * Metformin 1000 mg PO BIDM HbA1c: 5.9% (02/14/22) ASSESSMENT: * DM is a 71 year old male POD #0 s/p right reverse total shoulder arthroplasty * Received dexamethasone 8 mg IV/PO in OR * Preop BSG of 101 mg/dL, postop BSG of 136 mg/dL * Well-controlled T2DM on metformin as an outpatient * Will give conservative NPH to cover steroids PLAN FOR INPATIENT GLYCEMIC CONTROL: * Hold outpatient oral diabetes medications * Basal insulin * NPH 15 units SC x 1 (~0.1 unit/kg) * Bolus insulin * NovoLog per scale ACHS or Q6hrs while NPO * Goal Range: Low 110 mg/dL - High 140 mg/dL * Correction Factor: 20 mg/dL/unit * Nutritional / Prandial insulin per carb ratio of 1 unit per 7 grams CHO consumed
[2022-03-08] MEDS: oxyCODONE HCL IR 5 MG TAB (IMMEDIATE RELEASE) PO PRN ×2 (14:55→20:12)
[2022-03-08] MEDS: ACETAMINOPHEN 500 MG TAB PO SCH ×2 (16:03→20:12)
[2022-03-08] MEDS: SODIUM CHLORIDE 0.9% 1000ML 1,000 ML IV SCH (16:12)
[2022-03-08] MEDS: INSULIN ASPART PER UNIT SC SCH ×3 (16:51→21:38)
[2022-03-08] MEDS: IBUPROFEN 600 MG TAB PO SCH ×2 (18:33→22:58)
[2022-03-08] MEDS: ceFAZolin 2000MG 2,000 MG/15 ML SYR IV SCH (18:33)
[2022-03-08] MEDS: DOCUSATE SODIUM 100 MG CAP PO SCH (20:14)
[2022-03-08] MEDS ORDERED: ATORVASTATIN 10 MG TAB PO SCH (21:00)
[2022-03-08] MEDS ORDERED: SENNA 8.6 MG TAB PO SCH (21:00)
[2022-03-09] MEDS: SODIUM CHLORIDE 0.9% 1000ML 1,000 ML IV SCH ×2 (01:13→10:30)
[2022-03-09] MEDS: ceFAZolin 2000MG 2,000 MG/15 ML SYR IV SCH (02:20)
[2022-03-09] MEDS: ACETAMINOPHEN 500 MG TAB PO SCH ×2 (04:02→09:34)
[2022-03-09 06:01] LABS: Basophils # (auto) 0.02 K/uL (0-0.2); Basophils % (auto) 0.1 %; Hematocrit (blood only) 37.1 % (40.1-51.0); Hemoglobin 12.1 g/dl (14.0-18.0); Immature Granulocytes # (auto) 0.13 K/uL (0.00-0.02); Immature Granulocytes % (auto) 0.9 %; Lymphocytes % (auto) 9.8 %; Mean Corpuscular Hemoglobin 30.9 pg (25.0-34.0); Mean Corpuscular Hgb Conc 32.6 g/dL (32.0-36.0); Mean Corpuscular Volume 94.9 fL (80.0-100.0); Mean Platelet Volume 10.3 fL (9.4-12.4); Monocytes # (auto) 0.84 K/uL (0.24-0.82); Monocytes % (auto) 5.9 %; Neutrophils # (auto) 11.93 K/uL (1.4-6.5); Neutrophils % (auto) 83.3 %; Platelet Count 246 K/uL (130-400); RDW Coefficient of Variation 12.6 % (11.5-14.5); RDW Standard Deviation 43.4 fL (36.4-46.3); Red Blood Count 3.91 M/uL (4.63-6.08); White Blood Count 14.32 K/ul (4.8-10.8)
[2022-03-09] MEDS: IBUPROFEN 600 MG TAB PO SCH ×2 (06:08→11:40)
[2022-03-09 06:34] LABS: BUN Creatinine Ratio 14.2 (10-20); Calcium 8.5 mg/dl (8.5-10.1); Creatinine Clr Calc Pharmacy 66.4 ml/min; Est GFR (African American) 62.2 ml/min; Est GFR (Non-African American) 53.7 ml/min; Potassium 5.1 mmol/L (3.5-5.1)
[2022-03-09] MEDS ORDERED: lisinopril 40 MG TAB PO SCH (09:00)
[2022-03-09] MEDS ORDERED: CHOLECALCIFEROL 5,000 UNITS 125 MCG TAB PO SCH (09:00)
[2022-03-09] MEDS ORDERED: MULTIVITAMIN TAB PO SCH (09:00)
[2022-03-09] MEDS ORDERED: METOPROLOL SUCC 25MG EXT REL TAB PO SCH (09:00)
[2022-03-09] MEDS ORDERED: metFORMIN HCL 500 MG TAB PO SCH (09:00)
[2022-03-09] MEDS: DOCUSATE SODIUM 100 MG CAP PO SCH (09:33)
[2022-03-09] MEDS: INSULIN ASPART PER UNIT SC SCH ×2 (09:42→13:50)
--- NOTE | 2022-03-09 10:22 | Orthopedic Progress Note ---
Date of Service March 09, 2022 Assessment & Plan (1) Primary osteoarthritis, right shoulder: Plan: Postop day 1 status post right reverse TSA PT/OT protocols. Nonweightbearing right upper extremity. DVT prophylaxis-apixaban p.o. twice daily, SCDs Pain management as written. DC planning-patient is planning for outpatient PT upon discharge. Admission and Anticipated Discharge Date Admission Date: March 08, 2022 Subjective Postop day 1 Patient sitting up in bed awake and alert. Getting ready to start his physical therapy protocol. She has had little residual tingling in his index finger however no tingling or numbness in the remainder of his fingers. Pain is controlled at this time. Denies shortness of breath, chest pain, lighth eadedness. Physical Exam Physical Exam: Silverlon dressing is intact. Sling is in place. Elbow is nontender and range of motion intact. He has good wrist range of motion at this time. He has good flexion extension of all fingers. Vascular is intact. Cap refill less than 2 seconds. Results & Data ([facility]) Vital Signs (Past 12 Hours) Vital Signs Temp Pulse Pulse Resp BP Pulse Ox O2 Del Method 03/09/22 07:40 36.7 C 85 22 124/82 93 Room Air 03/09/22 02:38 36.8 C 81 20 139/89 94 Room Air 03/08/22 23:00 36.8 C 118 H 20 143/82 H 96 Room Air Laboratory Results Laboratory Results WBC 14.32 K/ul (4.8-10.8) H 03/09/22 05:26 RBC 3.91 M/uL (4.63-6.08) L 03/09/22 05:26 Hgb 12.1 g/dl (14.0-18.0) L 03/09/22 05:26 Hct 37.1 % (40.1-51.0) L 03/09/22 05:26 MCV 94.9 fL (80.0-100.0) 03/09/22 05:26 MCH 30.9 pg (25.0-34.0) 03/09/22 05:26 MCHC 32.6 g/dL (32.0-36.0) 03/09/22 05:26 RDW Std Deviation 43.4 fL (36.4-46.3) 03/09/22 05:26 RDW Coeff of Alan 12.6 % (11.5-14.5) 03/09/22 05:26 Plt Count 246 K/uL (130-400) 03/09/22 05:26 MPV 10.3 fL (9.4-12.4) 03/09/22 05:26 Immature Gran % (Auto) 0.9 % 03/09/22 05:26 Neut % (Auto) 83.3 % 03/09/22 05:26 Lymph % (Auto) 9.8 % 03/09/22 05:26 Thomas % (Auto) 5.9 % 03/09/22 05:26 Eos % (Auto) 0.0 % 03/09/22 05:26 Baso % (Auto) 0.1 % 03/09/22 05:26 Neut # (Auto) 11.93 K/uL (1.4-6.5) H 03/09/22 05:26 Lymph # (Auto) 1.40 K/uL (1.2-3.4) 03/09/22 05:26 Thomas # (Auto) 0.84 K/uL (0.24-0.82) H 03/09/22 05:26 Eos # (Auto) 0.00 K/uL (0-0.50) 03/09/22 05:26 Baso # (Auto) 0.02 K/uL (0-0.2) 03/09/22 05:26 Immature Gran # (Auto) 0.13 K/uL (0.00-0.02) H 03/09/22 05:26 Sodium 136 mmol/L (136-145) 03/09/22 05:26 Potassium 5.1 mmol/L (3.5-5.1) 03/09/22 05:26 Chloride 106 mmol/L (98-107) 03/09/22 05:26 Carbon Dioxide 24 mmol/L (21-32) 03/09/22 05:26 Anion Gap 6 (3-11) 03/09/22 05:26 BUN 19 mg/dl (6-23) 03/09/22 05:26 Creatinine 1.34 mg/dl (0.6-1.4) 03/09/22 05:26 Est Cr Clr Drug Dosing 66.4 ml/min 03/09/22 05:26 Est GFR ( Amer) 62.2 ml/min 03/09/22 05:26 Est GFR (Non-Af Amer) 53.7 ml/min 03/09/22 05:26 BUN/Creatinine Ratio 14.2 (10-20) 03/09/22 05:26 Glucose 132 mg/dl (70-99(Fasting)) H 03/09/22 05:26 POC Glucose 133 mg/dl (70-99) H 03/09/22 08:22 Calcium 8.5 mg/dl (8.5-10.1) 03/09/22 05:26 SARS-CoV-2, RNA, NAAT NEGATIVE (NEGATIVE) 03/08/22 08:51 Impressions Shoulder X-Ray 03/08/22 12:54 XR shoulder RT min 2V routine HISTORY: 71 years-old Male Post shoulder surgery right shoulder arthroplasty COMPARISON: Chest radiograph 02/13/2022 TECHNIQUE: 2 views of the right shoulder FINDINGS: Reverse right shoulder total joint arthroplasty. No acute fracture or unexpected opaque foreign body. Expected postoperative soft tissue swelling with deep tissue air. Moderate degeneration of the AC joint. Cardiomegaly. IMPRESSION: Reverse right shoulder total joint arthroplasty with expected postoperative changes. ACT 112: Negative or not required by law. The above report was generated using voice recognition software. It may contain grammatical, syntax or spelling errors. Electronically signed by: Yuniel Holbrook M.D. 03/08/2022 1:50 PM
[2022-03-09] MEDS: oxyCODONE HCL IR 5 MG TAB (IMMEDIATE RELEASE) PO PRN (11:39)
[2022-03-09] MEDS ORDERED: APIXABAN 5 MG TABLET PO SCH (12:00)
--- NOTE | 2022-03-09 17:07 | Discharge Summary ---
Date of Service March 09, 2022 Admission HPI Per Admitting Provider Mr. Coleman is a 71-year-old male with chronic right shoulder pain for many years with gradual aggressive worsening. He has failed an extended course of conservative treatment with multiple injections. His pain and stiffness are significantly limiting to him. Principal Diagnosis Right shoulder osteoarthritis Discharge Data Allergies Allergy/AdvReac Type Severity Reaction Status Date / Time No Known Allergies Allergy Unknown Verified 03/08/22 09:35 Procedures Performed Operation Date: 03/08/22 10:45 Actual Procedures p Right Reverse Total Shoulder Arthroplasty(Right) - Lázaro Black M.D. Ordered Studies 03/08/22 05:00 US - OR guided needle placemen Routine Hospital Course (1) Primary osteoarthritis, right shoulder: Patient underwent a right reverse total shoulder arthroplasty on the date of admission. Patient tolerated the procedure well and was transferred up to the general orthopedic surgery floor in stable condition. Perioperative antibiotic coverage was initiated, and continued for 24 hours postoperatively. Home anticoagulation was restarted with Eliquis. Perioperative pain control regimen was transitioned to strictly oral pain medications by postoperative day 1. On postoperative day 1 the patient was doing very well. Pain was well controlled, and patient was mobilizing well with therapy. Patient was determined be safe and ready for discharge to home. Total Time Total Time Spent Total Time Spent (In Minutes): 15 Discharge Plan Discharge Items Patient Disposition: Home - Home Health Services Reason For Visit: Osteoarthritis, Right Shoulder Discharge Diagnosis: Right shoulder glenohumeral joint osteoarthritis, rotator cuff tear, proximal biceps tendon rupture Activity: Per Instructions section Weightbearing: Right non-weightbearing Non-emergency contact: Surgeon Call non-emergency contact if: your pain is not controlled, your temperature is above 101.5, your wound has increased redness and your wound has increased drainage Follow-up/Referrals: Lázaro Black M.D. [Physician] - (Follow-up in 2 weeks from the day of your surgery for your first postoperative wound check) Raysa Aldrich M.D. [Primary Care Provider] - Diet: Carb Consistent or DM2 Addtl Attending Provider Instructions: Things to Watch Out For -Go to the Emergency Room if you have sudden onset of nausea, vomiting, chest pain, shortness of breath, or uncontrollable pain. -Call the clinic or go to the Emergency Room if you have a sudden increase in the amount of wound drainage or the drainage becomes thick, yellow or green, or foul-smelling. -For routine questions, call the clinic at [phone] during regular business hours (8am-5pm). For urgent issues after regular business hours, you may call the clinic to be connected to the on-call physician. Dressings -A special waterproof, silver-impregnated dressing was placed on your shoulder. Keep this dressing in place for 1 week after surgery. You may shower with the waterproof dressing in place, but do not soak the dressing in the bathtub or pool. -One week after surgery, you may remove the waterproof dressing. You may continue to shower, and let water run BRIEFLY over the incision, but do not soak the incision in the bathtub or pool for 2 weeks. You may also gently clean the incision with mild soap and water; pat the incision dry after cleaning-do not rub the incision. Apply a new dressing daily thereafter. Shoulder Exercises -Keep your operative shoulder in the sling for comfort, except as detailed below. -You should come out of the sling 4-5 times a day for passive pendulum exercises: lean over and swing your arm in a circular pattern. -You should also do active-assisted forward flexion exercises: use your opposite hand to lift your operative arm forward to 90 degrees. -Do not use your arm to push yourself up out of bed or up from a seated position. Ice Pack -You may use an ice pack for pain relief. You should use it 20-30 minutes at a time. Place a towel between the ice pack and your skin to prevent frostbite. -You should use the ice pack fairly regularly for the first 1-2 weeks after surgery to help reduce pain and inflammation. -About 2 weeks after your surgery, you should start using heat to loosen up your shoulder prior to doing your stretching exercises, then use the cooling sleeve after your exercises are complete to reduce swelling and pain. Pain Medicines -Your prescriptions for pain medications have already been sent to the pharmacy on file at [facility]. -You have been prescribed an anti-inflammatory (Motrin/ibuprofen) and a non- narcotic pain medicine (Tylenol/acetaminophen). These are your primary pain medications. Take them each every 6 hours as instructed. It is recommended that you stagger these medicines every 3 hours (i.e. take ibuprofen at 8:00 am, then acetaminophen at 11:00 am, then ibuprofen at 2:00 pm, etc) -DO NOT take any additional anti-inflammatories (Advil, Aleve/naproxen, Mobic/meloxicam, Celebrex) or any additional Tylenol/acetaminophen products with these prescribed medications. -You have also been prescribed an additional narcotic pain medication (oxyco done). Take this medicine ONLY for breakthrough pain not controlled by the ibuprofen and acetaminophen. -Do not drive or operate heavy machinery while taking the narcotic medication. -Common side effects of narcotic pain medicines include itching, nausea, constipation, and feeling "loopy". However, if you develop a rash or hives, stop taking the medicine and call the clinic. If you develop swelling in your throat or difficulty breathing, go to the Emergency Room or call 911 IMMEDIATELY. -You may take over the counter stool softeners if needed for constipation. Pending Studies at Discharge: No Stand-Alone Forms: My [facility], Smoking Cessation Medications and DC Order Prescriptions: Continued atorvastatin 10 mg Tablet 10 mg PO HS lisinopril 40 mg Tablet 40 mg PO DAILY famotidine 20 mg tablet 20 mg PO BID PRN (Reason: Acid Reflux) metformin 1,000 mg tablet 1,000 mg PO BID cholecalciferol (vitamin D3) [Vitamin D3] 125 mcg (5,000 unit) Tablet 15,000 unit PO DAILY metoprolol succinate 25 mg Tablet Extended Release 24 Hr 12.5 mg PO QAM 60 Days Qty: 30 0RF Eliquis 5 mg Tablet 5 mg PO BID 60 Days Qty: 60 1RF Discontinued acetaminophen 500 mg Tablet 1,000 mg PO Q6H PRN (Reason: Pain) hydrocodone-acetaminophen 7.5-325 mg Tablet 1 tab PO Q6H PRN (Reason: Pain) Discharge Orders: Discharge Order (Routine); Ordered 03/09/22 Ordered By: Kameron Almendarez/Other Patient Handouts: External Rotate Shoulder Strength Admission Data Admit Date/Time: 03/08/22 12:54 Attending Provider: Lázaro Black Admit Provider: Lázaro Black Primary Care Provider: Raysa Aldrich Other Interventions: Discharge Summary Assessment (RN) Last Done: 03/09/22 11:56
== END 2022-03-09 14:12 | disposition home or self-care (01) | DRG 483 ==
LOC: ASU 08:45 → 3N 12:54